=== PATIENT | female | born 1990 | race Caucasian/White ===

== ENCOUNTER 2016-12-28 06:23 | Observation (INO) ==
[2016-12-28 06:53] LABS: Bilirubin,Urine Negative (Negative); Blood,Urine Negative (Negative); Clarity,Urine Cloudy (Clear); Color,Urine Yellow (Yellow); Glucose,Urine (UA) Normal (Normal); Ketones,Urine Negative (Negative); Leukocyte Esterase,Urine Moderate (Negative); Nitrite,Urine Negative (Negative); PH,Urine 6.5 pH Units (5.0-8.0); Protein,Urine Negative (Neg-Trace); Urobilinogen,Urine Normal (Normal)
[2016-12-28 06:56] LABS: Hyaline Casts,Urine None Seen per lpf (None-Few); RBC,Urine 0-3 per hpf (0-3); Squamous Epithelial Cell,Urine Many per lpf (None-Few)
[2016-12-28 07:09] LABS: Bacteria,Urine Few per hpf (None-Few); Yeast,Urine Few per hpf (None Seen)
[2016-12-28] MEDS ORDERED: D5% in Lactated Ringers 1,000 ML IVC ONE (07:20)
[2016-12-28] MEDS ORDERED: Ringers Solution, Lactated 1,000 ML ONE (07:27)
[2016-12-28] MEDS ORDERED: Ringers Solution, Lactated 500 ML IVC ONE (07:30)
[2016-12-28 07:48] LABS: Basophils % 0.1 %; Eosinophils % 0.1 %; Hemoglobin 10.1 g/dL (11.5-15.4); Immature Granulocytes % 0.4 % (0-4); Immature Platelets 5.7 % (1.1-6.1); Lymphocytes # 0.8 K/mcL (0.6-4.6); Lymphocytes % 6.4 %; Mean Corpuscular HGB Conc 33.7 g/dL (31.6-35.5); Mean Corpuscular Hemoglobin 28.9 pg (28.0-33.3); Mean Corpuscular Volume 85.7 fL (83.0-100.0); Monocytes # 0.8 K/mcL (0.0-1.3); Monocytes % 6.2 %; Neutrophils # 11.4 K/mcL (1.6-8.9); Platelet Count 193 K/mcL (140-400); Red Cell Distribution Width 12.8 % (11.5-14.5); Segmented Neutrophils % 86.8 %
--- NOTE | 2016-12-28 09:22 | OB/GYN Progress Note ---
Date of Encounter: 12/28/16 Time of Encounter: 09:20 - Assessment and Plan (1) 33 weeks gestation of Current Visit: Yes Status: Acute (2) and not yet delivered in third trimester Current Visit: No Status: Acute (3) uterine contractions in third trimester, antepartum Current Visit: Yes Status: Acute Patient received IV hydration contractions that spaced out. Patient will be discharged home will follow-up in the office this week. Subjective - Subjective Interval history: Patient is a 26-year-old 5 para 4 at 33-0/7 weeks who presents to labor and delivery complaining of contractions starting approximately 2 AM. Patient states she started getting uncomfortable has been on labor and delivery once before when 28 weeks for similar complaints. She was given terbutaline at that time to stop her contractions. Patient was having occasional contractions on admission she was closed thick and ballotable and was given an IV bolus. Contractions did space out at this time. Patient denies any dysuria urgency frequency no vaginal discharge no recent intercourse. Patient has delivered all of her other children at term. Patient was observed for couple of hours contractions spaced out feeling much better ready to go home. Antepartum ROS: contractions Objective - Vital Signs Vital Signs: Intake and Output 12/27/16 12/28/16 12/28/16 23:59 07:59 15:59 Other: Weight 79.2 kg Patient Weight 12/28/16 23:59 Weight 79.2 kg - Exam FHR: category 1 FHR comments: heart tones 140s reactive occasional contractions on admission none at this time patient's heart tones were in the 160s 170s on admission also back normal Auscultation: bilateral: normal Abdomen: Present: normal appearance, gravid Uterus: Present: firm Cervical dilation: closed Cervix effacement: thick station: ballotable - Labs Labs: Abnormal lab results WBC 13.2 K/mcL (4.3-11.1) H 12/28/16 07:40 RBC 3.50 M/mcL (3.82-4.97) L 12/28/16 07:40 Hgb 10.1 g/dL (11.5-15.4) L 12/28/16 07:40 Hct 30.0 % (35.3-44.9) L 12/28/16 07:40 Neutrophils # 11.4 K/mcL (1.6-8.9) H 12/28/16 07:40 Urine Clarity Cloudy (Clear) A 12/28/16 06:30 Ur Leukocyte Esterase Moderate (Negative) H 12/28/16 06:30 Urine Microscopic WBC 5-15 per hpf (0-3) H 12/28/16 06:30 Ur Squamous Epith Cells Many per lpf (None-Few) H 12/28/16 06:30 Urine Yeast Few per hpf (None Seen) H 12/28/16 06:30 Ur Culture Indicated? YES (NO) A 12/28/16 06:30
== END 2016-12-28 09:40 | disposition home or self-care (01) ==
LOC: 1NENULAB
PROVIDERS: ADMIT Obstetrics & Gynecology; ATTEND Obstetrics & Gynecology

== ENCOUNTER 2017-01-20 13:30 | Observation (INO) ==
[2017-01-20 14:16] LABS: Bilirubin,Urine Small (Negative); Blood,Urine Negative (Negative); Clarity,Urine Cloudy (Clear); Color,Urine Dark Yellow (Yellow); Glucose,Urine (UA) Normal (Normal); Ketones,Urine Trace mg/dL (Negative); Leukocyte Esterase,Urine Large (Negative); Nitrite,Urine Negative (Negative); Protein,Urine 30 mg/dL (Neg-Trace); Specific Gravity,Urine > 1.030 (1.010-1.025); Urobilinogen,Urine Normal (Normal)
[2017-01-20 14:17] LABS: Bacteria,Urine Many per hpf (None-Few); Hyaline Casts,Urine Moderate per lpf (None-Few); Squamous Epithelial Cell,Urine Many per lpf (None-Few); WBC,Urine TNTC per hpf (0-3)
[2017-01-20 15:23] LABS: Basophils % 0.2 %; Eosinophils % 0.3 %; Hematocrit 33.1 % (35.3-44.9); Hemoglobin 10.5 g/dL (11.5-15.4); Immature Granulocytes % 0.3 % (0-4); Lymphocytes # 1.5 K/mcL (0.6-4.6); Lymphocytes % 12.8 %; Mean Corpuscular HGB Conc 31.7 g/dL (31.6-35.5); Mean Corpuscular Hemoglobin 27.1 pg (28.0-33.3); Mean Corpuscular Volume 85.5 fL (83.0-100.0); Mean Platelet Volume 10.7 fL (9.4-12.4); Monocytes # 0.5 K/mcL (0.0-1.3); Monocytes % 4.2 %; Neutrophils # 9.8 K/mcL (1.6-8.9); Platelet Count 231 K/mcL (140-400); Red Blood Count 3.87 M/mcL (3.82-4.97); Red Cell Distribution Width 13.2 % (11.5-14.5); Segmented Neutrophils % 82.2 %
--- NOTE | 2017-01-20 15:25 | OB/GYN Progress Note ---
Date of Encounter: 01/20/17 Time of Encounter: 15:21 - Assessment and Plan (1) 36 weeks gestation of Current Visit: Yes Status: Acute (2) Headache in , antepartum Current Visit: Yes Status: Acute Pt states headache has resolved. Continue with current home medication for migraine Qualifiers: Trimester: third trimester Qualified Code(s): O26.893 - Other specified related conditions, third trimester; R51 - Headache (3) Elevated blood pressure affecting in third trimester, antepartum Current Visit: Yes Status: Acute PIH labs drawn. Will discharge if WNL (4) UTI (urinary tract infection) in in third trimester Current Visit: Yes Status: Acute Macrobid 100mg po Bid for 7 days Subjective - Subjective Interval history: Pt 26 year old 36 week states had headache this AM that did not go away with migraine medication. Pt then took BP at home and was elvelated 150/110. Pt went to work to have BP taken manually by nurses and was 150's/106. Pt reports she did have some spots in vision this morning, but has improved, Pt states feels fine now no headache or visual changes currently. Endorses + movement , denies leaking of fluid or vaginal bleeding. Antepartum ROS: movement normal, no loss of fluid, no vaginal bleeding, no contractions Objective - Vital Signs Vital Signs: Intake and Output 01/19/17 01/20/17 01/20/17 23:59 07:59 15:59 Other: Weight 76.8 kg Patient Weight 01/20/17 23:59 Weight 76.8 kg - Exam FHR: category 1 FHR comments: Reactive NST baseline 145 Auscultation: bilateral: normal Abdomen: Present: normal appearance, soft, gravid Uterus: Present: normal - Labs Labs: Abnormal lab results Urine Clarity Cloudy (Clear) A 01/20/17 14:00 Ur Specific [place] > 1.030 (1.010-1.025) H 01/20/17 14:00 Urine Protein 30 mg/dL (Neg-Trace) H 01/20/17 14:00 Urine Ketones Trace mg/dL (Negative) H 01/20/17 14:00 Urine Bilirubin Small (Negative) H 01/20/17 14:00 Ur Leukocyte Esterase Large (Negative) H 01/20/17 14:00 Urine Microscopic RBC 3-5 per hpf (0-3) H 01/20/17 14:00 Urine Microscopic WBC TNTC per hpf (0-3) H 01/20/17 14:00 Ur Squamous Epith Cells Many per lpf (None-Few) H 01/20/17 14:00 Urine Bacteria Many per hpf (None-Few) H 01/20/17 14:00 Hyaline Casts Moderate per lpf (None-Few) H 01/20/17 14:00 Ur Culture Indicated? YES (NO) A 01/20/17 14:00
[2017-01-20 15:37] LABS: Alanine Aminotransferase 21 Units/L (0-55); Aspartate Amino Transferase 20 Units/L (5-34); BUN/Creatinine Ratio 12 (6-26); Blood Urea Nitrogen 8 mg/dL (7-20); Lactate Dehydrogenase 236 Units/L (159-327); Uric Acid 5.5 mg/dL (2.6-6.0); eGFR For African Americans > 60 (> 60); eGFR For Non-African Americans > 60 (> 60)
[2017-01-20 15:41] LABS: Protein/Creatinine Ratio,Urine 0.21 mg/mg (0-0.20)
== END 2017-01-20 15:54 | disposition home or self-care (01) ==
LOC: 1NENULAB
PROVIDERS: ADMIT Obstetrics & Gynecology; ATTEND Obstetrics & Gynecology

== ENCOUNTER 2017-01-21 13:02 | Inpatient (IN) ==
[2017-01-21] MEDS ORDERED: Ringers Solution, Lactated 1,000 ML IVC ONE (13:17)
[2017-01-21 13:44] LABS: Basophils % 0.1 %; Eosinophils # 0.1 K/mcL (0.0-0.6); Eosinophils % 0.6 %; Hematocrit 32.6 % (35.3-44.9); Hemoglobin 10.4 g/dL (11.5-15.4); Immature Granulocytes % 0.4 % (0-4); Lymphocytes # 1.9 K/mcL (0.6-4.6); Lymphocytes % 17.5 %; Mean Corpuscular HGB Conc 31.9 g/dL (31.6-35.5); Mean Corpuscular Hemoglobin 26.9 pg (28.0-33.3); Mean Corpuscular Volume 84.5 fL (83.0-100.0); Mean Platelet Volume 10.9 fL (9.4-12.4); Monocytes # 0.5 K/mcL (0.0-1.3); Neutrophils # 8.3 K/mcL (1.6-8.9); Platelet Count 216 K/mcL (140-400); Red Blood Count 3.86 M/mcL (3.82-4.97); Red Cell Distribution Width 13.3 % (11.5-14.5); Segmented Neutrophils % 76.4 %
[2017-01-21] MEDS ORDERED: Gentamicin 0 MG in 0.9 % Sodium Chloride 100 ML IVPB SCH (14:00)
[2017-01-21] MEDS ORDERED: Gentamicin 310 MG in 0.9 % Sodium Chloride 100 ML IVPB SCH (15:00)
[2017-01-21] MEDS ORDERED: Gentamicin 110 MG in 0.9 % Sodium Chloride 100 ML IVPB ONE (15:00)
[2017-01-21] MEDS ORDERED: Ringers Solution, Lactated 2,000 ML ONE (15:04)
--- NOTE | 2017-01-21 15:27 | OB/GYN Progress Note ---
Date of Encounter: 01/21/17 Time of Encounter: 15:24 - Assessment and Plan (1) 36 weeks gestation of Current Visit: No Status: Acute (2) and not yet delivered in third trimester Current Visit: No Status: Acute (3) UTI (urinary tract infection) in in third trimester Current Visit: No Status: Acute IV Gentamycin ordered by Dr. Yadav. (4) Flank pain, acute Current Visit: Yes Status: Acute Renal US ordered Subjective - Subjective Interval history: Pt seen yesterday and diagnosed with UTI. She was discharged with Macrobid. Today she was seen in the office for her routine visit and was found to have tea colored urine and c/o dysuria and right flank pain. She states she has taken 2 doses of the Macrobid with no improvement in sx. She states she has constant flank pain with intermittent exacerbations. She rates the pain 6/10. She does admit a history of kidney stones and states her pain today is similar to what she has had in the past with the stones. She also reports occassional contractions. No other complaints. Antepartum ROS: movement normal, contractions (occassional), no loss of fluid, no vaginal bleeding Objective - Vital Signs Vital Signs: Intake and Output 01/20/17 01/21/17 01/21/17 23:59 07:59 15:59 Other: Weight 75.523 kg Patient Weight 01/21/17 23:59 Weight 75.523 kg - Exam FHR: category 1 FHR comments: NST reactive Auscultation: bilateral: normal Abdomen: Present: soft, gravid. Absent: tenderness Uterus: Present: normal. Absent: tenderness - Labs Labs: Abnormal lab results Hgb 10.4 g/dL (11.5-15.4) L 01/21/17 13:20 Hct 32.6 % (35.3-44.9) L 01/21/17 13:20 MCH 26.9 pg (28.0-33.3) L 01/21/17 13:20
[2017-01-21] MEDS ORDERED: *HR* HYDROmorphone (PF) 1 MG/ML SYRINGE IVP PRN (15:49)
[2017-01-21] MEDS ORDERED: *HR* Nalbuphine 20 MG/ML AMPUL IVP PRN (15:54)
[2017-01-21 18:18] LABS: Bilirubin,Urine Small (Negative); Blood,Urine Negative (Negative); Clarity,Urine Cloudy (Clear); Color,Urine Red (Yellow); Glucose,Urine (UA) Normal (Normal); Ketones,Urine Trace mg/dL (Negative); Leukocyte Esterase,Urine Large (Negative); Nitrite,Urine Positive (Negative); Protein,Urine 30 mg/dL (Neg-Trace); Specific Gravity,Urine 1.022 (1.010-1.025); Urobilinogen,Urine Normal (Normal)
[2017-01-21 18:19] LABS: Bacteria,Urine Few per hpf (None-Few); Squamous Epithelial Cell,Urine Many per lpf (None-Few); WBC,Urine TNTC per hpf (0-3)
--- NOTE | 2017-01-21 18:22 | OB/GYN History & Physical ---
Date of Encounter: 01/21/17 Time of Encounter: 06:00 Assessment and Plan (1) labor in third trimester Current visit: Yes Status: Acute -Patient having contractions and cervix changes, now 5cm dilated. -GBS status unknown. Anaphylaxis to penicillins. Will give vanc. -Blood type B positive. No rhogam needed. -After 36w, no need for steroids. Plan -Continue to monitor. Rector, BP, HR -Continue cervix checks Qualifiers: labor delivery status: without delivery Qualified Code(s): O60.03 - labor without delivery, third trimester (2) Flank pain, acute Current visit: Yes Status: Acute -PMH of kidney stones. States it feels similar -Guarding. Resting comfortably in bed -History of fioricet and phenergan for years. -Cancelled US for [place] evalutaiton. Do not want patient to go into labor off the floor. Would not oil changer if patient has kidney stone-she will not go to surgery at this time and patient still making urine. Plan -Continue nubaine -Get UA with culture. -Continue Gent -Ultrasound cancelled -Continue fluids. (3) 36 weeks gestation of Current visit: No Status: Acute -Subchorionic hemorrhage. Managed conservatively -No other complications. History of Present Illness Chief complaint: Dysuria, R Flank Pain, Labor HPI: Ms. Patino is a 26 year old female, 36w3d, , originally placed in observation for UTI. See previous note for details. While being monitored, contractions are observed. Patient dilated from 2cm to 5cm in less than 3 hours. Preparation for labor initiated. Admits to R flank and superpubic pain, dysuria. Denies abdominal pain, CP, SOB. Patient admits to using ferocet and phenergen for years, has used with previous without complication. Denies smoking or drinking alcohol. Anaphylaxis to cephalexin and penicillin. History of subchorionic hemorrhage. Past Med Surg Social Fam HX - Past Medical History Medical history: asthma, kidney stones, migraine Psychiatric history: anxiety - Past Surgical History Surgical History: cholecystectomy, other - Social History Smoking Status: Never smoker Smokeless Tobacco Status: No Alcohol use: none Drug use: none - Family History Mother Family Member Ethnicity: Non- Living Status: Still Living Hx Family Cardiac Disorders: No Hx Family Respiratory Disorders: No Hx Family Cancer: No Hx Family GI Disorders: No Hx Family Genitourinary Disorders: No Hx Family Endocrine Disorder: No Hx Family Musculoskeletal Disorders: No Hx Family Neuromuscular Disorders: No Hx Family Neurologic Disorders: Yes (teja and nhung) Hx Family HEENT Disorders: No Hx Family Autoimmune Disorders: No Hx Family Reproductive Disorders: No Hx Family Psychosocial Disorders: No Hx Family Medical Disorders: No Obstetrical History - Pregnancies : 5 Para: 4 Term: 4 : 0 Ab's: 0 Livin - History/Complications History/Complications: subchorionic hemorrhage in current . No intervention. Managed conservatively without medication. Medications and Allergies Fioricet 100 mg PO Q6-8H PRN 06/18/15 [History] Phenergan 25 mg PO Q4-6H PRN 06/18/15 [History] Vitamin Tablet 12/28/16 [History] Nitrofurantoin Monohyd/M-Cryst [Macrobid 100 mg Capsule] 100 mg PO BID #14 capsule 01/20/17 [Rx] Allergies cephalexin [From Keflex] Allergy (Verified 10/01/16 12:30) Rash Penicillins [PCN] Allergy (Verified 10/01/16 12:30) Rash Exam - Constitutional Constitutional: well developed, well nourished, no acute distress, average body habitus - HEENT HEENT: Normocephaly, Mucus Membranes Moist - Lungs Respiratory exam: CTAB - Cardiovascular Cardiovascular exam: RRR, +S1, +S2 - Abdomen Abdomen: Present: gravid, non tender - Extremities Extremities exam: normal inspection - Cervix Dilation: 5 (per nurse) Effacement: 50 (per nurse ) - Uterus Uterus exam: Present: normal size, normal contour - Comments Comments: Patient resting comfortably in bed, supine and later on her L side. Complains of R flank pain. Pain with palpation. Is guarding. Results Result Diagrams: 01/21/17 13:20 01/21/17 18:39 Abnormal lab results Hgb 10.4 g/dL (11.5-15.4) L 01/21/17 13:20 Hct 32.6 % (35.3-44.9) L 01/21/17 13:20 MCH 26.9 pg (28.0-33.3) L 01/21/17 13:20 All other labs normal.
[2017-01-21 18:43] LABS: Hyaline Casts,Urine None Seen per lpf (None-Few); Mucus,Urine Many (Few)
[2017-01-21 18:58] LABS: BUN/Creatinine Ratio 6 (6-26); Carbon Dioxide 20 mEq/L (19-29); Chloride 109 mEq/L (98-109); Glucose 81 mg/dL (70-99); Osmolality,Calculated 284 (280-300); Potassium 3.5 mEq/L (3.5-4.5); Sodium 139 mEq/L (136-145); eGFR For African Americans > 60 (> 60); eGFR For Non-African Americans > 60 (> 60)
[2017-01-21 18:59] LABS: Blood Urea Nitrogen 4 mg/dL (7-20)
[2017-01-21] MEDS: Vancomycin 1,000 MG in D5% in Water 250 ML IVPB SCH (19:22)
--- NOTE | 2017-01-21 21:03 | OB Labor Progress Note ---
Date of Encounter: 01/21/17 Time of Encounter: 21:02 Labor Progress Note - Subjective Subjective: patient feeling more of her contractions - Vital Signs Vital Signs: VSS - Cervix Cervix: 5cm - Olean Olean: Q1-2 - Plan Plan: ok for epidural, Vanc for GBS ppx 2/2 PCN allergy, Gent for UTI Anticipate
[2017-01-21] MEDS ORDERED: Ringers Solution, Lactated 500 ML IVC ONE (21:24)
[2017-01-21] MEDS ORDERED: *HR* FentaNYL (PF) 100 MCG/2 ML VIAL EP ONE (21:24)
[2017-01-21] MEDS ORDERED: *HR* Ropivacaine/PF 0.2% 10 ML AMPUL EP ONE (21:24)
[2017-01-21] MEDS ORDERED: EPHEDrine 50 MG/ML VIAL IVP PRN (21:24)
--- NOTE | 2017-01-21 21:27 | Anesthesia Evaluation PreOp ---
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: Denies Any Significant HX Other Medical History: Denies Any Significant HX, Other (History of sacral fracture.) Anesthesia History: Past Anesthesia, Problems (Profound decrease in BP with epidurals in the past.) : Yes Alcohol Use: none Drug use: none Medications and Allergies Fioricet 100 mg PO Q6-8H PRN 06/18/15 [History] Phenergan 25 mg PO Q4-6H PRN 06/18/15 [History] Vitamin Tablet 12/28/16 [History] Nitrofurantoin Monohyd/M-Cryst [Macrobid 100 mg Capsule] 100 mg PO BID #14 capsule 01/20/17 [Rx] Allergies cephalexin [From Keflex] Allergy (Verified 10/01/16 12:30) Rash Penicillins [PCN] Allergy (Verified 10/01/16 12:30) Rash - Meds/Allergy Pre-op Review Medications Reviewed: Yes Allergies Reviewed: Yes Beta Blockers on Current Med List: No Anesthesia Results - Labs 01/21/17 13:20 01/21/17 18:39 Anesthesia Exam 130/72, 81, 20, 98% Height: 1.6m Weight: 75.5kg NPO (# of Hours): >4hr Pain Scale: 7 Pain Scale Used: Numeric (1 - 10) - HEENT Pupil (Motor): Pupils equal Mallampati: II Teeth: Normal Oral Opening: Greater than 3 - SOLAR SALES ASSESSOR LOC: Oriented [employer]AR SALES ASSESSOR Motor: Normal RUE, Normal LUE, Normal RLE, Normal LLE, Normal Face [employer] SALES ASSESSOR Sensory: Normal: RUE, LUE, RLE, LLE, Face - Cardiac Rhythm: Regular Murmur: None - Pulmonary Breath Sounds: bilateral Clear Respiratory Effort: Symmetrical Anesthesia Assess/Plan ASA Score: 2 Modified [place] Scale for Level of Consciousness: Cooperative, oriented, and tranquil Anesthetic Plan: Regional Autologous Blood: Yes Monitoring Plan: Standard Monitors Recovery Plan: Other
[2017-01-21] MEDS ORDERED: Epidural Premix (fent/bupiv) 110 ML EP ONE (21:29)
[2017-01-21] MEDS ORDERED: *HR* FentaNYL (PF) 100 MCG/2 ML VIAL ONE (21:29)
[2017-01-21] MEDS ORDERED: *HR* Ropivacaine/PF 0.2% 10 ML AMPUL ONE (21:29)
[2017-01-21] MEDS ORDERED: Epidural Premix (fent/bupiv) 110 ML EP SCH (21:30)
--- NOTE | 2017-01-21 22:06 | Anesthesia Procedures ---
Date of Encounter: 01/21/17 Time of Encounter: 21:36 Procedures: Anesthesia - Epidural/Spinal Patient ID/Chart reviewed: Yes Patient examined: Yes OB Eval: Gestational age: 36.3 OB Eval: : 5 OB Eval: Hx Para: 4 OB Eval: Dilated at (cm): 6 OB Eval: Contractions: Non-stressed pattern Consent Obtained: Yes Supplemental Oxygen: None/Room Air Site Prep: Aseptic Technique, Sterile prep and drape, 0.5% Chlorhexidine/Alcohol Patient position: upright Local Anesthetic: Lidocaine 1% Amount of Local Anesthetic used: 2.5 Touhy Needle Gauge: 18 Touhy Needle Depth (cm): 7 Catheter Depth at Skin (cm): 12 Test Dose (1.5% Lido + Epi): Volume given (mls): 3 Test Dose Result: Negative Loading Dose: Fentanyl (mcg): 100 Loading Dose: Other: Ropivacaine 0.2% 8mL Loading Dose Administered: Thru Catheter Infusion Med: 0.125% Bupivacaine w/ 2 mcg/ml Fentanyl Infusion Rate (mls/hr): 10 (Bolus 3mL q15min; max 3/hr) Catheter Secured in Place: Tegaderm, Tape Interspace Used: L3-L4 Loss of Resistance (SELENE): Yes Blood: No CSF: No Paresthesia: No Procedure: x2 attempts. Patient tolerated well. Slow bolus due to history of decreased BP with prior epidurals. Vitals + FHT's: VSS and FHR stable throughout procedure. See nursing documentation.
[2017-01-21] MEDS: Gentamicin 80 MG in 0.9 % Sodium Chloride 100 ML IVPB SCH (23:22)
[2017-01-22] MEDS ORDERED: *HR* FentaNYL (PF) 100 MCG/2 ML VIAL ONE ×2 (03:07→11:35)
[2017-01-22] MEDS ORDERED: *HR* Ropivacaine/PF 0.2% 10 ML AMPUL ONE (03:07)
--- NOTE | 2017-01-22 03:20 | Anesthesia Progress Note ---
Date of Encounter: 01/22/17 Time of Encounter: 03:00 Anesthesia Note - Note Note: 01/22/17 03:19 Epidural bolus - Ropiv 0.2% 6mL + Fentanyl 100mcg. Epidural rate increased to 12mL/hour.
--- NOTE | 2017-01-22 04:06 | OB Labor Progress Note ---
Date of Encounter: 01/22/17 Time of Encounter: 04:05 Labor Progress Note - Subjective Subjective: patient comfortable - Vital Signs Vital Signs: vss - Heart Tones Heart Tones: FHT CAT 1 - [place]: irreg - Plan Plan: patient still unchanged, cont antibiotics
[2017-01-22] MEDS ORDERED: Ringers Solution, Lactated 1,000 ML ONE ×2 (06:59→11:44)
[2017-01-22] MEDS ORDERED: Epidural Premix (fent/bupiv) 110 ML EP ONE (07:02)
[2017-01-22] MEDS: Vancomycin 1,000 MG in D5% in Water 250 ML IVPB SCH (07:04)
[2017-01-22] MEDS: Gentamicin 80 MG in 0.9 % Sodium Chloride 100 ML IVPB SCH ×2 (07:04→14:49)
[2017-01-22] MEDS ORDERED: Aminoglycoside Consult 1 EACH MC ONE (08:29)
--- NOTE | 2017-01-22 11:29 | OB Labor Progress Note ---
Date of Encounter: 01/22/17 Time of Encounter: 11:27 Labor Progress Note - Subjective Subjective: Pt reporting increasing discomfort with contractions. - Cervix Cervix: 6-7/80/BBOW - Heart Tones Heart Tones: Category I - [place]: irregular - Plan Plan: Will have anesthesia redose epidural since it had previously turned off. Anticipate .
--- NOTE | 2017-01-22 11:34 | Anesthesia Progress Note ---
Date of Encounter: 01/22/17 Time of Encounter: 11:30 Anesthesia Note - Note Note: 01/22/17 11:30 Called for increased pain during contractions. Spontaneous rupture. Dilated 6- 7cm. Epidural pump restarted at 12ml/hr. 3ml bolus given with epidural pharm bag premix solution through pump. Vss. FHR stable. 131/96 hr 131
[2017-01-22] MEDS ORDERED: Lidocaine/EPI 1:200k 2% PF 20 ML VIAL ONE (11:35)
--- NOTE | 2017-01-22 11:41 | Anesthesia Progress Note ---
Date of Encounter: 01/22/17 Time of Encounter: 11:40 Anesthesia Note - Note Note: 01/22/17 11:40 An additional bolus given for pain during contractions. 4ml of 2%lidocaine with epi and 100mcg fentanyl. vss. fhr stable
[2017-01-22] MEDS ORDERED: Oxytocin 20 units/ LR 1000 mL 20 UNIT/1,000 ML BAG IVC ONE ×2 (11:44→19:37)
[2017-01-22] MEDS ORDERED: Oxytocin 20 units/ LR 1000 mL 20 UNIT/1,000 ML BAG IVC SCH (13:30)
--- NOTE | 2017-01-22 17:06 | OB/GYN Procedure Note ---
Delivery - Delivery Date: 01/22/17 Provider: Susannah Carmen Intrapartum events: none, other(please specify) (PPROM) Delivery induction: none Delivery augmentation: pitocin Delivery monitor: external FHT, external uterine Anesthesia: epidural Estimated Blood Loss: 100 - Infant (s) Infant A Delivery Date: 01/22/17 Infant Delivery Time: 16:33 Presentation: vertex Position: ALANA Route of delivery: Gender: Female Viability: Viable Weight Gram: 3.455 kg at 1 minute: 8 at 5 mins: 9 Shoulder Dystocia: not encountered Placenta: spontaneous Cord: 3 umbilical vessels - Repair Episiotomy: none Laceration Description: Periurethral, Perineal - 1st Degree - Complications Delivery complications: none Delivery comments: The patient was complete and pushing with epidural anesthesia was a spontaneous vaginal delivery after 2 pushes of a vigorous female infant in the ALANA position with Apgars of 8 at 1 minute and 9 at 5 minutes. Infant was placed on maternal abdomen. Cord was clamped cut after pulsations ceased. Placenta was delivered spontaneously and intact. Three-vessel cord confirmed. There was a superficial right labial laceration which was hemostatic and not repaired. First-degree perineal laceration was repaired with 4-0 Vicryl in usual fashion. Estimated blood loss 100 mL, complications none. - Disposition Mom disposition: stable in LDR disposition: stable in LDR
[2017-01-22] MEDS ORDERED: Vancomycin 1,000 MG in D5% in Water 250 ML IVPB SCH (19:00)
[2017-01-22] MEDS ORDERED: Ibuprofen 600 MG TABLET PO PRN (19:37)
[2017-01-22] MEDS ORDERED: Measles/Mumps/Rubella Vacc 0.5 ML VIAL SQ PRN (19:37)
[2017-01-22] MEDS ORDERED: Oxytocin 20 units/ LR 1000 mL 20 UNIT/1,000 ML BAG IV SCH (19:37)
[2017-01-22] MEDS ORDERED: Acetaminophen 325 MG TABLET PO PRN (19:37)
[2017-01-22] MEDS: *HR* OxyCODONE/APAP 5/325 TABLET PO PRN (20:15)
[2017-01-23] MEDS: Gentamicin 80 MG in 0.9 % Sodium Chloride 100 ML IVPB SCH ×4 (00:15→23:08)
[2017-01-23] MEDS ORDERED: Ringers Solution, Lactated 1,000 ML ONE (06:18)
[2017-01-23] MEDS: *HR* OxyCODONE/APAP 5/325 TABLET PO PRN ×4 (06:22→20:23)
[2017-01-23 06:56] LABS: Basophils % 0.2 %; Eosinophils # 0.1 K/mcL (0.0-0.6); Eosinophils % 1.4 %; Hematocrit 28.1 % (35.3-44.9); Immature Granulocytes % 0.5 % (0-4); Lymphocytes # 2.5 K/mcL (0.6-4.6); Lymphocytes % 28.8 %; Mean Corpuscular HGB Conc 31.3 g/dL (31.6-35.5); Mean Corpuscular Hemoglobin 26.7 pg (28.0-33.3); Mean Corpuscular Volume 85.4 fL (83.0-100.0); Mean Platelet Volume 11.2 fL (9.4-12.4); Monocytes # 0.7 K/mcL (0.0-1.3); Monocytes % 8.1 %; Neutrophils # 5.3 K/mcL (1.6-8.9); Platelet Count 149 K/mcL (140-400); Red Blood Count 3.29 M/mcL (3.82-4.97); Red Cell Distribution Width 13.4 % (11.5-14.5)
[2017-01-23 06:58] LABS: Hemoglobin 8.8 g/dL (11.5-15.4)
[2017-01-23] MEDS: Prenatal Vit/FA 1 EACH TABLET PO SCH (09:46)
--- NOTE | 2017-01-23 10:57 | OB/GYN Progress Note ---
Date of Encounter: 01/23/17 Time of Encounter: 10:53 - Assessment and Plan (1) Flank pain, acute Current Visit: Yes Status: Acute renal US today. Remains on IV ATB (2) Vaginal delivery Current Visit: No Status: Acute Pt. meeting all milestones, but is not feeding well. consulted. Will plan discharge tomorrow AM. Subjective - Subjective Interval history: Pt states feeling better, minimal pain at this time. Patient reports: appetite normal : doing well Objective - Latest Vital Signs Latest vital signs: Vital Signs Temp Pulse Resp BP Pulse Ox 01/23/17 09:25 97.8 F 75 16 123/78 98 01/22/17 23:00 16 01/22/17 22:50 98.4 F 65 16 106/67 97 01/22/17 20:50 97.9 F 81 16 114/74 98 01/22/17 19:50 98.1 F 81 16 119/70 100 Intake and Output 01/22/17 01/23/17 01/23/17 23:59 07:59 15:59 Intake Total 102 / 102 300 / 300 Output Total 400 / 400 Balance 102 / 102 -100 / -100 Intake: IV Fluids 102 / 102 Gentamicin 80 MG In 0.9 % 102 / 102 Sodium Chloride 100 ML @ 100 mls/hr IVPB Q8H [facility] Rx#:[id number] Oral 300 / 300 Output: Urine 400 / 400 Other: Meal Breakfast Percent of Meal Consumed 70% Weight 73.9 kg 75.4 kg Patient Weight 01/23/17 23:59 Weight 75.4 kg - Exam Lungs: bilateral: normal Chest: Normal S1, Normal S2 Extremities: Present: normal Abdomen: Present: normal appearance Uterus: Present: normal, firm - Labs Labs: Laboratory Results - last 24 hr 01/23/17 06:16 WBC 8.7 RBC 3.29 L Hgb 8.8 L D Hct 28.1 L MCV 85.4 MCH 26.7 L MCHC 31.3 L RDW 13.4 Plt Count 149 MPV 11.2 Immature Gran % 0.5 Seg Neutrophils % 61.0 Lymphocytes % 28.8 Monocytes % 8.1 Eosinophils % 1.4 Basophils % 0.2 Neutrophils # 5.3 Lymphocytes # 2.5 Monocytes # 0.7 Eosinophils # 0.1 Basophils # 0.0
--- NOTE | 2017-01-23 20:55 | OB/GYN Progress Note ---
Date of Encounter: 01/23/17 Time of Encounter: 20:51 - Assessment and Plan (1) Flank pain, acute Current Visit: Yes Status: Acute renal US today now shows mild hydronephrosis, will obtain followup CT as pt still has symptoms. Remains on IV ATB. (2) Vaginal delivery Current Visit: No Status: Acute Pt. meeting all milestones, but is not feeding well. consulted. Will plan discharge tomorrow AM. Subjective - Subjective Interval history: Pt in room upset as just told her she wanted a divorce. Pt states is continuing to have flank pain, but is improved when taking pain medication. Objective - Latest Vital Signs Latest vital signs: Vital Signs Temp Pulse Resp BP Pulse Ox 01/23/17 20:05 98.2 F 68 14 126/80 99 01/23/17 15:30 98 F 70 16 110/75 100 01/23/17 09:25 97.8 F 75 16 123/78 98 01/22/17 23:00 16 01/22/17 22:50 98.4 F 65 16 106/67 97 Intake and Output 01/23/17 01/23/17 01/23/17 07:59 15:59 23:59 Intake Total 204 / 204 1320 / 1320 222 / 222 Output Total 1250 / 1250 Balance 204 / 204 70 / 70 222 / 222 Intake: IV Fluids 204 / 204 102 / 102 Gentamicin 80 MG In 0.9 % 204 / 204 102 / 102 Sodium Chloride 100 ML @ 100 mls/hr IVPB Q8H [facility] Rx#:[id number] Oral 1320 / 1320 120 / 120 Output: Urine 1250 / 1250 Other: Meal Lunch Dinner Percent of Meal Consumed 100% 90% # Voids 1 Weight 75.4 kg Patient Weight 01/23/17 23:59 Weight 75.4 kg - Exam Comments: Pt with right flank pain and CVA tenderness. no pain or CVA tenderness on the left side. - Labs Labs: Laboratory Results - last 24 hr 01/23/17 06:16 WBC 8.7 RBC 3.29 L Hgb 8.8 L D Hct 28.1 L MCV 85.4 MCH 26.7 L MCHC 31.3 L RDW 13.4 Plt Count 149 MPV 11.2 Immature Gran % 0.5 Seg Neutrophils % 61.0 Lymphocytes % 28.8 Monocytes % 8.1 Eosinophils % 1.4 Basophils % 0.2 Neutrophils # 5.3 Lymphocytes # 2.5 Monocytes # 0.7 Eosinophils # 0.1 Basophils # 0.0 Renal US shows mild right hydronephrosis with no remal caluli seen
[2017-01-24] MEDS: *HR* OxyCODONE/APAP 5/325 TABLET PO PRN ×3 (00:40→09:37)
[2017-01-24] MEDS: Gentamicin 80 MG in 0.9 % Sodium Chloride 100 ML IVPB SCH (07:32)
--- NOTE | 2017-01-24 08:31 | Discharge Summary ---
Date of Encounter: 01/24/17 Time of Encounter: 08:29 - Discharge Diagnosis (1) Breast feeding status of mother Priority: Secondary Status: Acute Comments: support prn (2) Vaginal delivery Priority: Primary Status: Acute Comments: Continue routine care discharge home today follow up with Dr. Yadav - Discharge Medications Prescriptions: Ibuprofen [Motrin] 600 mg PO Q6HR PRN #60 tablet PRN Reason: Cramping Breast Pump [BREAST PUMP] 1 each .ROUTE AD #1 each Ferrous Sulfate 325 mg PO BID #60 tablet Home Medications: Vitamin Tablet 12/28/16 [History] Breast Pump [BREAST PUMP] 1 each .ROUTE AD #1 each 01/24/17 [Rx] Ferrous Sulfate 325 mg PO BID #60 tablet 01/24/17 [Rx] Ibuprofen [Motrin] 600 mg PO Q6HR PRN #60 tablet 01/24/17 [Rx] Vit/FA 1 each PO DAILY tablet 01/24/17 [Rx] Allergies/Adverse Reactions: Allergies cephalexin [From Keflex] Allergy (Verified 10/01/16 12:30) Rash Penicillins [PCN] Allergy (Verified 10/01/16 12:30) Rash Data Procedures and tests throughout hospitalization: Laboratory Tests 01/21/17 01/21/17 01/21/17 13:20 18:08 18:39 WBC 10.8 RBC 3.86 Hgb 10.4 L Hct 32.6 L MCV 84.5 MCH 26.9 L MCHC 31.9 RDW 13.3 Plt Count 216 MPV 10.9 Immature Gran % 0.4 Seg Neutrophils % 76.4 Lymphocytes % 17.5 Monocytes % 5.0 Eosinophils % 0.6 Basophils % 0.1 Neutrophils # 8.3 Lymphocytes # 1.9 Monocytes # 0.5 Eosinophils # 0.1 Basophils # 0.0 Sodium 139 Potassium 3.5 Chloride 109 Carbon Dioxide 20 BUN 4 L Creatinine 0.64 Est GFR ( Amer) > 60 Est GFR (Non-Af Amer) > 60 BUN/Creatinine Ratio 6 Glucose 81 Calculated Osmolality 284 Calcium 8.0 L Urine Color Red A Urine Clarity Cloudy A Urine pH 6.0 Ur Specific [place] 1.022 Urine Protein 30 H Urine Glucose (UA) Normal Urine Ketones Trace H Urine Blood Negative Urine Nitrite Positive A Urine Bilirubin Small H Urine Urobilinogen Normal Ur Leukocyte Esterase Large H Urine Microscopic RBC Test Not Performed Urine Microscopic WBC TNTC H Ur Squamous Epith Cells Many H Urine Bacteria Few Hyaline Casts None Seen Urine Mucus Many H Ur Culture Indicated? YES A 01/23/17 06:16 WBC 8.7 RBC 3.29 L Hgb 8.8 L D Hct 28.1 L MCV 85.4 MCH 26.7 L MCHC 31.3 L RDW 13.4 Plt Count 149 MPV 11.2 Immature Gran % 0.5 Seg Neutrophils % 61.0 Lymphocytes % 28.8 Monocytes % 8.1 Eosinophils % 1.4 Basophils % 0.2 Neutrophils # 5.3 Lymphocytes # 2.5 Monocytes # 0.7 Eosinophils # 0.1 Basophils # 0.0 Sodium Potassium Chloride Carbon Dioxide BUN Creatinine Est GFR ( Amer) Est GFR (Non-Af Amer) BUN/Creatinine Ratio Glucose Calculated Osmolality Calcium Urine Color Urine Clarity Urine pH Ur Specific [place] Urine Protein Urine Glucose (UA) Urine Ketones Urine Blood Urine Nitrite Urine Bilirubin Urine Urobilinogen Ur Leukocyte Esterase Urine Microscopic RBC Urine Microscopic WBC Ur Squamous Epith Cells Urine Bacteria Hyaline Casts Urine Mucus Ur Culture Indicated? - Impressions ITS Impressions Retroperitoneum Ultrasound 01/23/17 16:00 IMPRESSION: Mild right hydronephrosis. Suggest CT to evaluate for obstructing stone. D/ / Pramod Harden MD / Pramod Harden MD Interpreting Provider: Pramod Harden MD Abdomen/Pelvis CT 01/23/17 20:47 IMPRESSION: 1. Mild right hydroureteronephrosis without obstructive renal stone. This may be secondary to external compression of the distal right ureter by the enlarged and heterogeneous uterus. Much less likely, right-sided pyelonephritis may be considered within the differential diagnosis. 2. Enlarged and heterogeneous uterus likely related to status. Scattered hyperdense material in the endometrial cavity may reflect blood products. D/ 01/24/2017 07:15:35 Julius Randolph MD / josh Interpreting Provider: Julius Randolph MD Date of admission: 01/22/17 15:39 Primary care physician: Tracy Ji CNP Consults: 01/22/17 19:37 Consult to Wrecking Supervisor [CONS] Routine Comment: Vaginal delivery, consult needed 01/24/17 08:27 Consult to [place] (W&C) [CONS] Stat Reason For Exam: Reason for SW Consult: Patient upset, FOB asked for a divorce yesterday after baby was born. Discharging clinician: Maris Avina Anticipated date of discharge: 01/24/17 - Patient Status Disposition: Home, Self-Care Condition: Good Functional capacity at discharge: independent ambulation - Discharge Instructions Follow Up With: Tracy Ji CNP [Primary Care Provider] - Mukesh Yadav MD [Partnered Physician] - (February 25, 2017 @ 2:00 pm) - Diet and Activity Activity: increase activity as tolerated Diet: regular diet Hospital Course Reason for admission: active labor Delivery: Episiotomy: none Other procedures: none complications: UTI Discharge diagnosis: delivery baby: female (breast feeding) Time Attestation: Total time spent providing and/or coordinating discharge services: Time Spent: Less than 30 minutes Exam - Constitutional Vitals: Temp Pulse Resp BP Pulse Ox 98.2 F 68 14 126/80 99 01/23/17 20:05 01/23/17 20:05 01/23/17 20:05 01/23/17 20:05 01/23/17 20:05 General appearance IM: A&O X 3, pleasant, answers questions appropriately - Respiratory Respiratory exam: Present: CTAB - Cardiovascular Cardiovascular exam IM: Present: RRR, +S1, +S2 - GI/Abdominal GI/Abdominal exam IM: normal bowel sounds - Uterine Tone: Firm Uterus Position: 2 Fingers Below Umbilicus, Midline - Extremities Exam Extremities exam IM: Present: full ROM, normal capillary refill, normal inspection - Neurological Exam Neurological exam: alert, oriented X3, reflexes normal - Other Additional findings: light lochia
[2017-01-24 09:12] VITALS: BP 138/88
[2017-01-24] MEDS: Prenatal Vit/FA 1 EACH TABLET PO SCH (09:42)
== END 2017-01-24 14:16 | disposition home or self-care (01) | DRG 774 ==
LOC: 1NENULAB → 1NENUOBS 01-22 21:13
PROVIDERS: ADMIT Student in an Organized Health Care Education/Training Program; ATTEND Student in an Organized Health Care Education/Training Program

== ENCOUNTER 2018-11-11 00:01 | Observation (INO) ==
[2018-11-11 00:46] LABS: Bilirubin,Urine Negative (Negative); Blood,Urine Negative (Negative); Clarity,Urine Clear (Clear); Color,Urine Yellow (Yellow); Glucose,Urine (UA) Normal (Normal); Ketones,Urine Negative (Negative); Leukocyte Esterase,Urine Negative (Negative); Nitrite,Urine Negative (Negative); Protein,Urine 30 mg/dL (Neg-Trace); Specific Gravity,Urine > 1.030 (1.010-1.025); Urobilinogen,Urine Normal (Normal)
[2018-11-11 00:48] LABS: Bacteria,Urine None Seen per hpf (None-Few); Hyaline Casts,Urine None Seen per lpf (None-Few); RBC,Urine 0-3 per hpf (0-3); Squamous Epithelial Cell,Urine Many per lpf (None-Few); WBC,Urine 0-3 per hpf (0-3)
--- NOTE | 2018-11-11 01:12 | Emergency Department Note ---
Disposition Clinical Impression: Pelvic pain, First trimester , Free fluid in pelvis Disposition: Admitted As Inpatient Condition: Serious Abdominal Pain HPI - General Chief Complaint: ED Abdominal Pain Stated Complaint: Possible Ectopic Time Seen by Provider: 11/11/18 00:52 Source: patient Mode of arrival: ambulatory Limitations: no limitations Nursing Notes Reviewed: Yes Vital Signs Reviewed: Yes - History of Present Illness HPI Narrative: Patient is a at approximately 5 weeks presenting with right lower quadrant and pelvic pain. She reports her last menstrual period was in September. She had a positive test a few days ago. States yesterday she started having cramping and vaginal bleeding in the right lower quadrant. States that the vaginal bleeding has since stopped, but the cramping has progressively gotten worse. She was at work today and the pain continued to get worse. No fever or chills. No chest pain or shortness breath. No other abdominal pain. Some nausea but no vomiting. No diarrhea. No dysuria. No rashes. No decreased appetite, but she has had a very dry mouth. Pain Scale: 7 - Related Data Home Medications Medication Instructions Recorded Confirmed RX: No Known Home Drugs 11/11/18 11/11/18 Allergies Allergy/AdvReac Type Severity Reaction Status Date / Time cephalexin [From Keflex] Allergy Anaphylaxis Verified 11/11/18 00:23 Penicillins [PCN] Allergy See Verified 11/11/18 00:23 Comments Review of Systems: As reviewed in the HPI. All other systems reviewed are negative or normal. Abdominal Pain PMH - Past Medical History Medical history: Reports: asthma Female Surgical History: Reports: cholecystectomy : 6 Para: 5 A: 0 Psychiatric history: Reports: anxiety - Social History Smoking status: Never smoker Alcohol use: Reports: none Drug use: Reports: none Physical Exam CONSTITUTIONAL: [well appearing, alert and in no acute distress, but does appear quite uncomfortable] EYES: [EOMI, clear conjunctiva, PERRLA] HENT: [Normocephalic, atraumatic, moist mucus membranes, normal oropharynx] NECK: [normal inspection, full ROM, trachea midline, no obvious swelling] PULMONARY: [normal lung sounds bilaterally, normal chest rise and fall, no respiratory distress or stridor, no wheezes, no rales, no rhonchi CARDIOVASCULAR: [regular rate, regular rhythm, normal heart sounds, no murmurs, distal extremities are warm and well perfused] GASTROINSTESTINAL: [soft, moderately tender with guarding to the right lower quadrant and pelvis, non-rigid, non-distended, normal bowel sounds] GENITOURINARY/RECTAL: [deferred] NEUROLOGIC: [Alert, oriented x3, normal speech, moves all extremities] EXTREMITIES: [Normal inspection, full ROM, no tenderness, no pedal edema, normal capillary refill] MUSCULOSKELETAL: [no gross deformities, atraumatic] SKIN: [No cyanosis, no diaphoresis, normal color, warm, no rash] PSYCHIATRIC: [normal mood and affect] - General Limitations: no limitations General appearance: alert, in no apparent distress Course Course Narrative: Patient presenting with concern over ectopic . We will get quant and ultrasound. - Reevaluation(s) Reevaluation #1: 3:50 - Ultrasound is back and showed a moderate amount of free fluid with no identifiable IUP. I spoke with the on-call SURVEY WORKER [place] seamer. We will await callback from Dr. Yadav. 03:55 - Dr. Yadav will be up to see the patient in a few minutes. patient to be admitted for observation. Vital Signs Temperature 98.2 F 11/11/18 00:20 Pulse Rate 89 11/11/18 00:20 Respiratory Rate 20 11/11/18 00:20 Blood Pressure 116/69 11/11/18 00:20 O2 Sat by Pulse Oximetry 99 11/11/18 00:20 Temperature 98.2 F 11/11/18 00:20 Pulse Rate 82 11/11/18 03:17 Respiratory Rate 20 11/11/18 05:27 Blood Pressure 108/57 11/11/18 05:27 O2 Sat by Pulse Oximetry 99 11/11/18 03:17 Oxygen Delivery Oxygen Delivery Room Air Abdominal Pain - Lab Data Result diagrams: 11/11/18 01:26 11/11/18 01:26 Lab Results 11/11/18 11/11/18 11/11/18 Range/Units 00:30 01:26 01:26 WBC 11.6 H (4.3-11.1) K/mcL RBC 4.24 (3.82-4.97) M/mcL Hgb 13.2 (11.5-15.4) g/dL Hct 39.0 (35.3-44.9) % MCV 92.0 (83.0-100.0) fL MCH 31.1 (28.0-33.3) pg MCHC 33.8 (31.6-35.5) g/dL RDW 12.3 (11.5-14.5) % Plt Count 324 (140-400) K/mcL MPV 10.5 (9.4-12.4) fL Immature Gran % 0.3 (0-4) % Seg Neutrophils % 63.7 % Lymphocytes % 27.2 % Monocytes % 7.7 % Eosinophils % 0.8 % Basophils % 0.3 % Neutrophils # 7.4 (1.6-8.9) K/mcL Lymphocytes # 3.2 (0.6-4.6) K/mcL Monocytes # 0.9 (0.0-1.3) K/mcL Eosinophils # 0.1 (0.0-0.6) K/mcL Basophils # 0.0 (0.0-0.2) K/mcL Sodium 139 (136-145) mEq/L Potassium 3.7 (3.5-5.1) mEq/L Chloride 105 (98-107) mEq/L Carbon Dioxide 24 (23-29) mEq/L BUN 15 (6-20) mg/dL Creatinine 0.81 (0.60-1.20) mg/dL Est GFR ( Amer) > 60 (> 60) Est GFR (Non-Af Amer) > 60 (> 60) BUN/Creatinine Ratio 19 (6-26) Glucose 108 H (70-105) mg/dL Calculated Osmolality 289 (280-300) Calcium 9.9 (8.6-10.3) mg/dL Beta HCG, Quant 1240 H (Less than 5) mIU/mL Urine Color Yellow (Yellow) Urine Clarity Clear (Clear) Urine pH 6.0 (5.0-8.0) pH Units Ur Specific [place] > 1.030 H (1.010-1.025) Urine Protein 30 H (Neg-Trace) mg/dL Urine Glucose (UA) Normal (Normal) mg/dL Urine Ketones Negative (Negative) mg/dL Urine Blood Negative (Negative) Urine Nitrite Negative (Negative) Urine Bilirubin Negative (Negative) Urine Urobilinogen Normal (Normal) mg/dL Ur Leukocyte Esterase Negative (Negative) Urine Microscopic RBC 0-3 (0-3) per hpf Urine Microscopic WBC 0-3 (0-3) per hpf Ur Squamous Epith Cells Many H (None-Few) per lpf Urine Bacteria None Seen (None-Few) per hpf Hyaline Casts None Seen (None-Few) per lpf Ur Culture Indicated? NO (NO)
--- NOTE | 2018-11-11 01:29 | Emergency Department Note ---
Disposition Clinical Impression: Pelvic pain, First trimester , Free fluid in pelvis Disposition: Admitted As Inpatient Condition: Serious Referrals: Tracy Ji CNP [Primary Care Provider] - Forms: ED Satisfaction Letter, Work/School Release General Adult HPI - General Chief complaint: ED Abdominal Pain Stated complaint: Possible Ectopic Time Seen by Provider: 11/11/18 00:52 Source: patient Mode of arrival: ambulatory Limitations: no limitations - History of Present Illness Pain Scale: 7 - Related Data Home Medications Medication Instructions Recorded Confirmed Fioricet 10/01/18 Previous Rx's Medication Instructions Recorded levoFLOXacin [Levaquin] 500 mg PO DAILY #12 tablet 10/01/18 levoFLOXacin [Levaquin] 500 mg PO DAILY #12 tablet 10/01/18 predniSONE [PredniSONE] 0 mg PO DAILY #15 tablet 10/01/18 Allergies Allergy/AdvReac Type Severity Reaction Status Date / Time cephalexin [From Keflex] Allergy Anaphylaxis Verified 11/11/18 00:23 Penicillins [PCN] Allergy See Verified 11/11/18 00:23 Comments Past Medical History - Past Medical History Medical history: Reports: asthma Surgical history: Reports: cholecystectomy, other Psychiatric history: Reports: anxiety : 6 Para: 5 Ab: 0 - Social History Smoking Status: Never smoker Smokeless Tobacco Status: No Alcohol use: Reports: none Drug use: Reports: none Physical Exam - General Limitations: no limitations General appearance: alert, in no apparent distress Course Vital Signs Temperature 98.2 F 11/11/18 00:20 Pulse Rate 89 11/11/18 00:20 Respiratory Rate 20 11/11/18 00:20 Blood Pressure 116/69 11/11/18 00:20 O2 Sat by Pulse Oximetry 99 11/11/18 00:20 Temperature 98.2 F 11/11/18 00:20 Pulse Rate 82 11/11/18 03:17 Respiratory Rate 16 11/11/18 03:17 Blood Pressure 116/70 11/11/18 03:17 O2 Sat by Pulse Oximetry 99 11/11/18 03:17 Oxygen Delivery Oxygen Delivery Room Air Medical Decision Making - Lab Data Result diagrams: 11/11/18 01:26 11/11/18 01:26 Lab Results 11/11/18 11/11/18 11/11/18 Range/Units 00:30 01:26 01:26 WBC 11.6 H (4.3-11.1) K/mcL RBC 4.24 (3.82-4.97) M/mcL Hgb 13.2 (11.5-15.4) g/dL Hct 39.0 (35.3-44.9) % MCV 92.0 (83.0-100.0) fL MCH 31.1 (28.0-33.3) pg MCHC 33.8 (31.6-35.5) g/dL RDW 12.3 (11.5-14.5) % Plt Count 324 (140-400) K/mcL MPV 10.5 (9.4-12.4) fL Immature Gran % 0.3 (0-4) % Seg Neutrophils % 63.7 % Lymphocytes % 27.2 % Monocytes % 7.7 % Eosinophils % 0.8 % Basophils % 0.3 % Neutrophils # 7.4 (1.6-8.9) K/mcL Lymphocytes # 3.2 (0.6-4.6) K/mcL Monocytes # 0.9 (0.0-1.3) K/mcL Eosinophils # 0.1 (0.0-0.6) K/mcL Basophils # 0.0 (0.0-0.2) K/mcL Sodium 139 (136-145) mEq/L Potassium 3.7 (3.5-5.1) mEq/L Chloride 105 (98-107) mEq/L Carbon Dioxide 24 (23-29) mEq/L BUN 15 (6-20) mg/dL Creatinine 0.81 (0.60-1.20) mg/dL Est GFR ( Amer) > 60 (> 60) Est GFR (Non-Af Amer) > 60 (> 60) BUN/Creatinine Ratio 19 (6-26) Glucose 108 H (70-105) mg/dL Calculated Osmolality 289 (280-300) Calcium 9.9 (8.6-10.3) mg/dL Beta HCG, Quant 1240 H (Less than 5) mIU/mL Urine Color Yellow (Yellow) Urine Clarity Clear (Clear) Urine pH 6.0 (5.0-8.0) pH Units Ur Specific [place] > 1.030 H (1.010-1.025) Urine Protein 30 H (Neg-Trace) mg/dL Urine Glucose (UA) Normal (Normal) mg/dL Urine Ketones Negative (Negative) mg/dL Urine Blood Negative (Negative) Urine Nitrite Negative (Negative) Urine Bilirubin Negative (Negative) Urine Urobilinogen Normal (Normal) mg/dL Ur Leukocyte Esterase Negative (Negative) Urine Microscopic RBC 0-3 (0-3) per hpf Urine Microscopic WBC 0-3 (0-3) per hpf Ur Squamous Epith Cells Many H (None-Few) per lpf Urine Bacteria None Seen (None-Few) per hpf Hyaline Casts None Seen (None-Few) per lpf Ur Culture Indicated? NO (NO) Attestation Statement - Attestation Attestation: I examined this patient and my medical decision-making was reviewed with the Resident Physician. I agree with the documented findings, disposition and treatment plan as described except to the extent set forth below. 5 weeks by dates type B positive. Presents with spotting, right pelvic pain. All pain is inferior to the umbilicus. Procedure, emergency point care ultrasound for : Procedure performed by me, images obtained and interpreted by me and archived in PACS. Multiple images of the uterus were obtained in the longitudinal and transverse planes by transvaginal ultrasonography showing a moderate amount of free fluid in the pelvis with a thick endometrial stripe and a small cystic structure at the extreme edge of the endometrial stripe. There is no yolk sac or pole within the small structure that is only a few millimeters in diameter. The possibility of a corneal ectopic is considered, but I cannot confirm a based on the scan. Both adnexa were well visualized. I saw nothing in either ovary or adjacent either ovary to suggest an ectopic . Given the concerning clinical history, but appears to be a significant amount of free fluid in the pelvis, and a questionable finding that would be concerning for a corneal ectopic. I will have our painting technician do a formal study. Radiology ultrasound showed essentially the same results his mind. Dr. Nieto was consulted. He is about to deliver on the L&D unit. He called his spoke to by phone. We discussed possible options. While in back to discuss these with the patient, her heart rate that was in the 80s was now ranging between 101 115. Blood pressure remains normal. Her pain is similar, now moving to her right flank. She has a normal hemoglobin and blood pressure, borderline hCG. This could be an early , but given her symptoms and the fluid in her pelvis Dr. Nieto and I are concerned for the possibility of an ectopic. She is willing to stay for observation, serial exams and serial HCG/US, Dr. Nieto will admit her. Critical care time: I was directly and primarily involve the care of this patient for 30 minutes excluding procedures.
[2018-11-11] MEDS: 0.9 % Sodium Chloride 1,000 ML IVC SCH ×2 (01:33→03:17)
[2018-11-11 01:42] LABS: Basophils % 0.3 %; Eosinophils # 0.1 K/mcL (0.0-0.6); Eosinophils % 0.8 %; Hemoglobin 13.2 g/dL (11.5-15.4); Immature Granulocytes % 0.3 % (0-4); Lymphocytes # 3.2 K/mcL (0.6-4.6); Lymphocytes % 27.2 %; Mean Corpuscular HGB Conc 33.8 g/dL (31.6-35.5); Mean Corpuscular Hemoglobin 31.1 pg (28.0-33.3); Mean Platelet Volume 10.5 fL (9.4-12.4); Monocytes # 0.9 K/mcL (0.0-1.3); Monocytes % 7.7 %; Neutrophils # 7.4 K/mcL (1.6-8.9); Platelet Count 324 K/mcL (140-400); Red Blood Count 4.24 M/mcL (3.82-4.97); Red Cell Distribution Width 12.3 % (11.5-14.5); Segmented Neutrophils % 63.7 %
[2018-11-11 02:00] LABS: BUN/Creatinine Ratio 19 (6-26); Blood Urea Nitrogen 15 mg/dL (6-20); Calcium 9.9 mg/dL (8.6-10.3); Carbon Dioxide 24 mEq/L (23-29); Chloride 105 mEq/L (98-107); Glucose 108 mg/dL (70-105); Osmolality,Calculated 289 (280-300); Potassium 3.7 mEq/L (3.5-5.1); Sodium 139 mEq/L (136-145); eGFR For Non-African Americans > 60 (> 60)
[2018-11-11] MEDS ORDERED: *HR* FentaNYL (PF) 100 MCG/2 ML VIAL IVP ONE (05:54)
[2018-11-11] MEDS ORDERED: Ringers Solution, Lactated 1,000 ML ONE (05:58)
[2018-11-11] MEDS ORDERED: Ringers Solution, Lactated 1,000 ML IVC SCH ×2 (06:00→12:09)
--- NOTE | 2018-11-11 06:27 | OB/GYN History & Physical ---
Date of Encounter: 11/11/18 Time of Encounter: 06:25 Assessment and Plan (1) First trimester Current visit: Yes Status: Acute Pt with known LMP making her about 6w5d gesttion. Quant is 1250 which is c/w this clinical date. U/s shows free fluid and a small complex cyst in rt ovary c/w possible hemorrhagic CL. Also found is a small sac within a thickened endometrium. Pt has significant tenderness in RLQ , however no genralzied peritoneal signs. She is ambulating. B/c of pain, spotting, complex cystic mass will admit for observtion. Hgb and VS are good though her pulse has trended upwards. Will recheck labs and follow exam. Will leave pt NPO in case exploratory l/s were indicated. Dw pt particular concern with doing surgery ea rly on with possible viable . (2) Free fluid in pelvis Current visit: Yes Status: Acute (3) Pelvic pain Current visit: Yes Status: Acute History of Present Illness Chief complaint: spotting in , rlq pain HPI: Ms. Patino is a 28 year old female female with LMP in [facility] who is a little over 6 weeks EGA per LMP presents with 3 -4 day h/o vginal spotting nd now aobut 7-8 hour h/o sudden on set of RLQ pain. 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 Pt reports some nausea, no emesis, no h/o similar c/o. She has no h/o STD's. Past Med Surg Social Fam HX - Past Medical History Source: patient, old records reviewed Medical history: asthma Additional medical history: sepsis Psychiatric history: anxiety - Past Surgical History Surgical History: cholecystectomy, other Additional surgical history: hernia repair - Social History Smoking Status: Never smoker Smokeless Tobacco Status: No Alcohol use: none Drug use: none - Family History Mother Family Member Ethnicity: Non- Living Status: Still Living Hx Family Cardiac Disorders: No Hx Family Respiratory Disorders: No Hx Family Cancer: No Hx Family GI Disorders: No Hx Family Endocrine Disorder: No Hx Family Neuromuscular Disorders: No Hx Family Neurologic Disorders: Yes (warneke and korsicoff) Hx Family HEENT Disorders: No Hx Family Autoimmune Disorders: No Obstetrical History - Pregnancies : 6 Para: 5 Medications and Allergies No Known Home Drugs 11/11/18 [History] Allergy/AdvReac Type Severity Reaction Status Date / Time cephalexin [From Keflex] Allergy Anaphylaxis Verified 11/11/18 00:23 Penicillins [PCN] Allergy See Verified 11/11/18 00:23 Comments Exam - Vital Signs Vital signs: Initial Vital Signs Temp Pulse Resp BP Pulse Ox 98.2 F 89 20 116/69 99 11/11/18 00:20 11/11/18 00:20 11/11/18 00:20 11/11/18 00:20 11/11/18 00:20 - Constitutional Constitutional: well developed, mild distress - HEENT HEENT: EOMI, PERRL - Neck Neck exam: full ROM - Lungs Respiratory exam: CTAB - Cardiovascular Cardiovascular exam: RRR - Vulva Vulva: bilateral: normal - Uterus Uterus exam: Present: tender - Adnexa Adnexa: right: tenderness (mod rlq pain, no generalized pain) Results Result Diagrams: 11/11/18 01:26 11/11/18 01:26 Abnormal lab results WBC 11.6 K/mcL (4.3-11.1) H 11/11/18 01:26 Glucose 108 mg/dL (70-105) H 11/11/18 01:26 Beta HCG, Quant 1240 mIU/mL (Less than 5) H 11/11/18 01:26 Ur Specific [place] > 1.030 (1.010-1.025) H 11/11/18 00:30 Urine Protein 30 mg/dL (Neg-Trace) H 11/11/18 00:30 Ur Squamous Epith Cells Many per lpf (None-Few) H 11/11/18 00:30 All other labs normal.
[2018-11-11 07:45] LABS: Basophils % 0.3 %; Eosinophils # 0.1 K/mcL (0.0-0.6); Eosinophils % 0.9 %; Hematocrit 34.7 % (35.3-44.9); Immature Granulocytes % 0.3 % (0-4); Lymphocytes # 3.1 K/mcL (0.6-4.6); Mean Corpuscular HGB Conc 33.4 g/dL (31.6-35.5); Mean Corpuscular Hemoglobin 31.3 pg (28.0-33.3); Mean Corpuscular Volume 93.5 fL (83.0-100.0); Mean Platelet Volume 10.3 fL (9.4-12.4); Monocytes # 0.7 K/mcL (0.0-1.3); Monocytes % 7.1 %; Neutrophils # 6.1 K/mcL (1.6-8.9); Platelet Count 250 K/mcL (140-400); Red Blood Count 3.71 M/mcL (3.82-4.97); Red Cell Distribution Width 12.4 % (11.5-14.5); Segmented Neutrophils % 60.4 %
[2018-11-11 07:46] LABS: Hemoglobin 11.6 g/dL (11.5-15.4)
--- NOTE | 2018-11-11 08:08 | Anesthesia Evaluation PreOp ---
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: Denies Any Significant HX Other Medical History: Denies Any Significant HX Anesthesia History: No Prior Anesthetic Complications, Past Anesthesia (Cleft palate repair & revision, L-RCR, R-ACL, Jaja w/umbilia; & inguinal hernia repairs.), Problems (Profound decrease in BP with epidurals) Alcohol Use: none Drug use: none Medications and Allergies No Known Home Drugs 11/11/18 [History] Allergy/AdvReac Type Severity Reaction Status Date / Time cephalexin [From Keflex] Allergy Anaphylaxis Verified 11/11/18 00:23 Penicillins [PCN] Allergy See Verified 11/11/18 00:23 Comments - Meds/Allergy Pre-op Review Medications Reviewed: Yes Allergies Reviewed: Yes Beta Blockers on Current Med List: No Anesthesia Results - Labs 11/11/18 07:29 11/11/18 01:26 Laboratory Results Laboratory Tests 11/11/18 01:26 Beta HCG, Quant 1240 H Impressions Obstetrics Ultrasound 11/11/18 00:57 IMPRESSION: No intrauterine or extrauterine is identified. Findings are compatible with of unknown location given the positive HCG. Recommend follow-up with serial HCG measurements and repeat ultrasound in 7-10 days. D/ / Chris Rojas / Chris Rojas Interpreting Provider: Chris Rojas Anesthesia Exam Vital Signs Temp Pulse Resp BP Pulse Ox 11/11/18 06:00 97.7 F 114 14 139/88 100 11/11/18 05:27 20 108/57 11/11/18 03:17 82 16 116/70 99 11/11/18 01:36 82 16 112/62 100 11/11/18 00:20 98.2 F 89 20 116/69 99 Intake and Output 11/10/18 11/11/18 11/11/18 23:59 07:59 15:59 Intake Total 1000 / 1000 Balance 1000 / 1000 Intake: IV Fluids 1000 / 1000 0.9 % Sodium Chloride 1,000 ML 1000 / 1000 @ 3750 mls/hr IVC .Q16M MARTA Rx# :[id number] Other: Weight 67.132 kg Patient Weight 11/11/18 23:59 Weight 67.132 kg Height: 5'2: Weight: 148# BMI = 27 NPO (# of Hours): MNOc - HEENT Pupil (Motor): Pupils equal, EOMI Mallampati: III Teeth: Normal (fair dentition) Oral Opening: Greater than 3 - MOTOR GENERATOR SET OPERATOR LOC: Oriented MOTOR GENERATOR SET OPERATOR Motor: Normal RUE, Normal LUE, Normal RLE, Normal LLE, Normal Face MOTOR GENERATOR SET OPERATOR Sensory: Normal: RUE, LUE, RLE, LLE, Face - Cardiac Rhythm: Regular Murmur: None - Pulmonary Breath Sounds: bilateral Clear Respiratory Effort: Symmetrical Anesthesia Assess/Plan ASA Score: 2, E Level of consciousness: Cooperative, Oriented, Tranquil Anesthetic Plan: General Monitoring Plan: Standard Monitors Recovery Plan: PACU Anes Supervising Prov Stmt: PT seen/evaluated, R&B discussed, questions answered and consent obtained. Gracie Leonard MD
[2018-11-11] MEDS ORDERED: Acetaminophen IV 1,000 MG/100 ML INFUS..BTL IVPB ONE (08:12)
[2018-11-11] MEDS ORDERED: Scopolamine Patch 1.5 MG PATCH.TD72 TD ONE (08:12)
[2018-11-11] MEDS ORDERED: Famotidine 20 MG/2 ML VIAL IVP ONE (08:12)
[2018-11-11] MEDS ORDERED: *HR* HYDROmorphone 2 MG TABLET PO PRN (08:13)
[2018-11-11] MEDS ORDERED: *HR* HYDROmorphone (PF) 1 MG/ML SYRINGE IVP PRN (08:13)
[2018-11-11] MEDS ORDERED: Clindamycin 900 MG/50 ML 900 MG/50 ML IV.SOLN IVPB ONE ×2 (09:52→09:53)
[2018-11-11] MEDS ORDERED: *HR* FentaNYL (PF) 100 MCG/2 ML VIAL ONE (09:55)
[2018-11-11] MEDS ORDERED: *HR* Midazolam HCl 2 MG/2 ML VIAL ONE (09:55)
[2018-11-11] MEDS ORDERED: Lidocaine -MPF 2% 2 ML VIAL ONE (09:56)
[2018-11-11] MEDS ORDERED: Dexamethasone 4 MG/ML VIAL ONE (09:56)
[2018-11-11] MEDS ORDERED: *HR* Rocuronium Bromide 50 MG/5 ML VIAL ONE (09:56)
[2018-11-11] MEDS ORDERED: Lidocaine -MPF 4% 5 ML AMPUL ONE (09:56)
[2018-11-11] MEDS ORDERED: Ondansetron 4 MG/2 ML VIAL ONE (09:56)
[2018-11-11] MEDS ORDERED: Bupivacaine/EPI 1:200k 0.25%PF 10 ML VIAL INFILT ONE (10:05)
[2018-11-11] MEDS ORDERED: *HR* HYDROmorphone (PF) 1 MG/ML SYRINGE ONE (10:14)
[2018-11-11] MEDS ORDERED: Neostigmine Methylsulfate 3 MG/3 ML SYRINGE ONE (11:10)
[2018-11-11] MEDS ORDERED: Dexmedetomidine HCl 400 MCG/100 ML MLS IVC ONE (11:26)
[2018-11-11] MEDS: *HR* Promethazine 25 MG/ML VIAL IVP PRN ×2 (11:37→11:47)
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
--- NOTE | 2018-11-11 12:00 | Discharge Summary ---
Outpatient Proc Discharge Plan - Plan Prescriptions: Oxycodone HCl/Acetaminophen [Percocet 5-325 mg Tablet] 1 each PO Q6H PRN 7 Days #30 tablet PRN Reason: post op pain Home Medications: Oxycodone HCl/Acetaminophen [Percocet 5-325 mg Tablet] 1 each PO Q6H PRN 7 Days #30 tablet 11/11/18 [Rx]
--- NOTE | 2018-11-11 12:05 | Anesthesia Evaluation Post Op ---
Date of Encounter: 11/11/18 Time of Encounter: 12:04 - Vital Signs Vital Signs: vss - Lungs Lungs: Clear Ascult./Percussion - Airway Airway: Non-obstructed - Cardiovascular Baseline Rhythm - Mental Status Mental Status: Asleep with brisk response to light stimulation - Pain Pain Scale used: Sonny (Faces) - Nausea Vomiting Nausea Vomiting: Not Present - Discharge PostOp Status: Transfer Patient to floor
[2018-11-11] MEDS ORDERED: *HR* OxyCODONE/APAP 5/325 TABLET PO PRN (12:09)
[2018-11-11 15:31] VITALS: BP 91/56
== END 2018-11-11 21:02 | disposition home or self-care (01) ==
LOC: EMEROOARM 00:01 → 1NENUOBS 00:01
PROVIDERS: ADMIT Obstetrics & Gynecology; ATTEND Obstetrics & Gynecology

== ENCOUNTER 2018-11-24 18:46 | Observation (INO) ==
[2018-11-24] MEDS ORDERED: Ringers Solution, Lactated 1,000 ML IVC SCH (19:15)
[2018-11-24 19:54] LABS: Basophils % 0.2 %; Eosinophils # 0.1 K/mcL (0.0-0.6); Eosinophils % 1.6 %; Hematocrit 32.3 % (35.3-44.9); Hemoglobin 11.2 g/dL (11.5-15.4); Immature Granulocytes % 0.3 % (0-4); Lymphocytes # 2.2 K/mcL (0.6-4.6); Lymphocytes % 24.7 %; Mean Corpuscular HGB Conc 34.7 g/dL (31.6-35.5); Mean Corpuscular Volume 92.3 fL (83.0-100.0); Mean Platelet Volume 10.6 fL (9.4-12.4); Monocytes # 0.8 K/mcL (0.0-1.3); Monocytes % 8.4 %; Neutrophils # 5.8 K/mcL (1.6-8.9); Platelet Count 228 K/mcL (140-400); Red Cell Distribution Width 12.2 % (11.5-14.5); Segmented Neutrophils % 64.8 %
[2018-11-24 20:30] VITALS: BP 104/51
--- NOTE | 2018-11-24 21:16 | Discharge Summary ---
Date of Encounter: 11/24/18 Time of Encounter: 21:23 - Discharge Diagnosis (1) Incomplete Priority: Primary Status: Acute Comments: per NINO pt with pain and bleeding in first trimester of . Initally she was taken to OR for possible ectopic with normal pelvis findings except for several cc of straw colored fluid. She then felt better and init had significantly increasing quant and resolution of pain. Pt now with bleeding and quant init 9.5 k, her bleeding persists and she continues to c/o rlq pain. She now had u/s today showing ES <20 mm, no longer with flid collection in uterus and no free fluid. Quant has sig dropped to just over 1K and hgb stable. D/w pt probable nearly completed AB. She is AF and normal WBC and HGB. Will d/c home. Will tx with Zithromax and flagyl for possible myometritis. She is to f/u in 1 week for recheck and quant. - Discharge Medications Prescriptions: metroNIDAZOLE [Flagyl] 500 mg PO BID #20 tablet Home Medications: Ondansetron ODT [Zofran ODT] 4 mg SL Q6HR PRN #10 tab.rapdis 11/22/18 [Rx] metroNIDAZOLE [Flagyl] 500 mg PO BID #20 tablet 11/24/18 [Rx] Allergies/Adverse Reactions: Allergy/AdvReac Type Severity Reaction Status Date / Time cephalexin [From Keflex] Allergy Anaphylaxis Verified 11/22/18 00:47 Penicillins [PCN] Allergy See Verified 11/22/18 00:47 Comments Data Procedures and tests throughout hospitalization: Laboratory Tests 11/24/18 11/24/18 19:38 19:38 WBC 9.0 RBC 3.50 L Hgb 11.2 L Hct 32.3 L MCV 92.3 MCH 32.0 MCHC 34.7 RDW 12.2 Plt Count 228 MPV 10.6 Immature Gran % 0.3 Seg Neutrophils % 64.8 Lymphocytes % 24.7 Monocytes % 8.4 Eosinophils % 1.6 Basophils % 0.2 Neutrophils # 5.8 Lymphocytes # 2.2 Monocytes # 0.8 Eosinophils # 0.1 Basophils # 0.0 Beta HCG, Quant 1766 H Labs on day of discharge: Labs from last 24 hours 11/24/18 11/24/18 19:38 19:38 WBC 9.0 RBC 3.50 L Hgb 11.2 L Hct 32.3 L MCV 92.3 MCH 32.0 MCHC 34.7 RDW 12.2 Plt Count 228 MPV 10.6 Immature Gran % 0.3 Seg Neutrophils % 64.8 Lymphocytes % 24.7 Monocytes % 8.4 Eosinophils % 1.6 Basophils % 0.2 Neutrophils # 5.8 Lymphocytes # 2.2 Monocytes # 0.8 Eosinophils # 0.1 Basophils # 0.0 Beta HCG, Quant 1766 H - Impressions Pt s/p dx l/s for possible ectopic on 11/11. At that time she had normal appearing pelvis with clear fluid noted. She felt better until 4 days ago when she had onset of bleeding like a period. This bleeding has continued and she presented to office today in f/u from ER where she was seen on 11/22. In ER she had minimally elevated WBC 12.4 and hgb 12.4. She had quant 9.5k and u/s showing no significant free fluid or adnexal findings. A small irregular sac was noted in fundus but no pole or yolk sac noted. She was d/c'd home and now today she is seen with continued bleeding and pain in RLQ. She is sent to [facility] for evaluation. She has no n/v or orthostatic sx's. She has been taking Percocet for pain. 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 I noted minimal pain on pelvic exam while pv u/s being performed - Extremities Exam Extremities exam IM: Present: full ROM - Neurological Exam Neurological exam: oriented X3
[2018-11-24] MEDS ORDERED: Azithromycin 250 MG TABLET PO ONE (21:30)
[2018-11-24] MEDS ORDERED: metroNIDAZOLE 500 MG TABLET PO ONE (21:30)
== END 2018-11-24 22:10 | disposition home or self-care (01) ==
LOC: 1NENUOBS
PROVIDERS: ADMIT Obstetrics & Gynecology; ATTEND Obstetrics & Gynecology

== ENCOUNTER 2018-12-20 14:04 | Inpatient (IN) ==
[2018-12-20] MEDS ORDERED: *HR* LORazepam 0.5 MG TABLET PO ONE (14:21)
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
[2018-12-20 15:03] LABS: Basophils % 0.3 %; Eosinophils # 0.1 K/mcL (0.0-0.6); Eosinophils % 0.5 %; Hematocrit 42.4 % (35.3-44.9); Hemoglobin 14.1 g/dL (11.5-15.4); Immature Granulocytes % 0.2 % (0-4); Lymphocytes # 2.2 K/mcL (0.6-4.6); Lymphocytes % 23.3 %; Mean Corpuscular HGB Conc 33.3 g/dL (31.6-35.5); Mean Corpuscular Volume 93.2 fL (83.0-100.0); Mean Platelet Volume 10.6 fL (9.4-12.4); Monocytes # 0.6 K/mcL (0.0-1.3); Neutrophils # 6.6 K/mcL (1.6-8.9); Platelet Count 290 K/mcL (140-400); Red Blood Count 4.55 M/mcL (3.82-4.97); Red Cell Distribution Width 12.1 % (11.5-14.5); Segmented Neutrophils % 69.7 %
[2018-12-20 15:19] LABS: Bilirubin,Urine Small (Negative); Blood,Urine Negative (Negative); Clarity,Urine Clear (Clear); Color,Urine Dark Yellow (Yellow); Glucose,Urine (UA) Normal (Normal); Ketones,Urine Trace mg/dL (Negative); Leukocyte Esterase,Urine Trace (Negative); Nitrite,Urine Negative (Negative); PH,Urine 5.5 pH Units (5.0-8.0); Protein,Urine 100 mg/dL (Neg-Trace); Specific Gravity,Urine 1.029 (1.010-1.025); Urobilinogen,Urine Normal (Normal)
[2018-12-20 15:20] LABS: Bacteria,Urine None Seen per hpf (None-Few); Hyaline Casts,Urine None Seen per lpf (None-Few); Squamous Epithelial Cell,Urine Many per lpf (None-Few); WBC,Urine 0-3 per hpf (0-3)
[2018-12-20 15:24] LABS: Acetaminophen < 10 mcg/mL (10-20); BUN/Creatinine Ratio 24 (6-26); Blood Urea Nitrogen 15 mg/dL (6-20); Calcium 9.6 mg/dL (8.6-10.3); Carbon Dioxide 25 mEq/L (23-29); Chloride 106 mEq/L (98-107); Ethanol < 10 mg/dL (Less than 10); Glucose 103 mg/dL (70-105); Osmolality,Calculated 291 (280-300); Potassium 3.7 mEq/L (3.5-5.1); Salicylate < 2.5 mg/dL (15.0-30.0); Sodium 140 mEq/L (136-145); eGFR For Non-African Americans > 60 (> 60)
[2018-12-20 15:32] LABS: Amphetamine Screen,Urine Negative ng/mL (Cutoff=1000); Barbiturate Screen,Urine Positive ng/mL (Cutoff=200); Benzodiazepines Screen,Urine Negative ng/mL (Cutoff=200); Cannabinoid Screen,Urine Negative ng/mL (Cutoff = 50); Cocaine Screen,Urine Negative ng/mL (Cutoff= 300); Opiate Screen,Urine Negative ng/mL (Cutoff=300); Phencyclidine Screen,Urine Negative ng/mL (Cutoff=25)
[2018-12-20 15:37] LABS: Thyroid Stimulating Hormone 0.511 mcIU/mL (0.340-5.600)
[2018-12-20 18:53] LABS: Chlamydia Trachomatis DNA Ur NOT DETECTED (Not Detect)
[2018-12-20] MEDS ORDERED: *HR* LORazepam 1 MG TABLET PO PRN (20:15)
[2018-12-20] MEDS ORDERED: *HR* LORazepam 2 MG/ML VIAL IM PRN (20:15)
[2018-12-20] MEDS ORDERED: Haloperidol Lactate 5 MG/ML VIAL IM PRN (20:15)
[2018-12-20] MEDS ORDERED: Mag Hydrox/Al Hydrox/Simeth 30 ML UDC PO PRN (20:15)
[2018-12-20] MEDS ORDERED: MOM Conc 10 ML UD.LIQ PO PRN (20:15)
[2018-12-20] MEDS ORDERED: Ibuprofen 400 MG TABLET PO PRN (20:15)
[2018-12-20] MEDS ORDERED: hydrOXYzine pamoate 25 MG CAPSULE PO PRN (20:15)
[2018-12-20] MEDS ORDERED: traZODone 50 MG TABLET PO PRN (20:15)
[2018-12-21] MEDS: Acetaminophen/Butalbital/CaffeineTABLET PO PRN ×2 (05:48→21:45)
--- NOTE | 2018-12-21 11:30 | Psychiatry History & Physical ---
Date of Encounter: 12/21/18 Time of Encounter: 10:00 History of Present Illness Patient Stated Chief Complaint: "There is so much" Medicare Admission Attestation: For traditional Medicare patients the provided hospital inpatient services are reasonable and necessary and in the case of services not specified as inpatient-only under 42 CFR 419.22 (n), that they are appropriately provided as inpatient services in accordance 42 CFR 412.3. For Critical Access Hospital the patient may reasonably be expected to be discharged or transferred to a hospital within 96 hours after admission to the Critical Access Hospital. Admitted From: Emergency Dept Plans for Post Hospital Care: Home History of Present Illness: Ms. 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 She has made suicidal comments to different staff in the emergency room over the past few weeks. She has had 5 weeks of very difficult psychosocial situations including finding out about her 's affair having a ectopic and the of her horse. She reports that she has had suicidal ideation with a plan to overdose on her Zoloft and to cut her throat. There are guns in the home but she denies suicidal plan with specific to shooting herself. She has no plans of harming the children. She does think that her youngest child who is an and still breast-feeding would miss her. She has been having panic attacks with rapid breathing pacing and feelings of extreme anxiety she says she has been coping by working and feels she does not have much social support outside of her work friends. She does say that her [id number] is supportive of her. Today she is denying suicidal ideations. Past Med Surg Social Fam HX - Past Medical History Medical history: asthma - Past Psychiatric History Psychiatric history: Reports: anxiety, depression Past psychiatric history details: She says she has never been in the hospital for has never received outpatient counseling or psychiatry she has no history of suicide attempts or self-harm. She reports she has been tried on different medications by her primary care physician including Zoloft Celexa and Vistaril and BuSpar in the past. Family psychiatric history: Unknown Family History of Suicide: Unknown - Past Surgical History Surgical History: cholecystectomy, orthopedic, other, other - Social History Smoking Status: Never smoker Smokeless Tobacco Status: No Alcohol use: none Drug use: none Occupational status: employed Current living situation: Home - Independent Activity Level: Independent ambulation Recent Out of Country Travel Within the Last 8 Weeks: No Exposure or Possible Exposure to Illness During Travel: No Additional social history: She lives with her . She would like to work on the relationship but feels that he does not want to. 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 Eyes substances of abuse. She has prescribed Fioricet for migraines which she uses appropriately as prescribed. He has worked as a nurse for 7 years. - Family History Mother Family Member Ethnicity: Non- Living Status: Still Living Hx Family Cardiac Disorders: No Hx Family Respiratory Disorders: No Hx Family Cancer: No Hx Family GI Disorders: No Hx Family Endocrine Disorder: No Hx Family Neuromuscular Disorders: No Hx Family Neurologic Disorders: Yes (radha) Hx Family HEENT Disorders: No Hx Family Autoimmune Disorders: No Medications & Allergies Ondansetron ODT [Zofran ODT] 4 mg SL Q6HR PRN #10 tab.rapdis 11/22/18 [Rx] metroNIDAZOLE [Flagyl] 500 mg PO BID #20 tablet 11/24/18 [Rx] Acetaminophen/Butalbital/Caffe [Fioricet] 1 each PO DAILY PRN 12/21/18 [History] Allergy/AdvReac Type Severity Reaction Status Date / Time cephalexin [From Keflex] Allergy Anaphylaxis Verified 11/22/18 00:47 Penicillins [PCN] Allergy See Verified 11/22/18 00:47 Comments Review of Systems Psychiatric: Reports: depression, anxiety, suicidal ideation, hopelessness Exam - HEENT Head exam IM: Present: atraumatic - Constitutional Vitals: Temp Pulse Resp BP Pulse Ox 98.4 F 105 16 130/81 99 12/21/18 09:00 12/21/18 09:00 12/21/18 09:00 12/21/18 09:00 12/21/18 09:00 General appearance: age & developmentally appropriate - Musculoskeletal Gait: normal Station: relaxed Strength & Tone: normal for patient - Psychiatric Patient Orientation: Yes Person, Yes Time, Yes Place Level of alertness: Alert Behavior: calm Psychomotor activity: Normal Eye Contact: Maintains Eye Contact Mood Description: Depressed, Anxious Patient description of mood: "Overwhelmed" Affect description: anxious Speech Volume: Normal Speech pattern: normal rate Language & Vocabulary: consistent with education Thought Process: Intact Thought Content: Yes Suicidal ideation Perceptual Disturbances: No Auditory hallucinations, No Visual hallucinations Attention Span Ability: Capable of Focused Attention Memory Description: Grossly Intact Patient Reliability: Reliable Historian Fund of knowledge: Yes average Intelligence Estimate: Average Judgment: Fair Insight: Partial Results - Drug Levels and Toxicology Drug Levels and Toxicology: Drug Levels and Toxicity 12/20/18 12/20/18 14:39 15:00 Urine Opiates Screen Negative Acetaminophen < 10 L Ur Barbiturates Screen Positive H Ur Phencyclidine Scrn Negative Ur Amphetamines Screen Negative U Benzodiazepines Scrn Negative Urine Cocaine Screen Negative U Marijuana (THC) Screen Negative Ethyl Alcohol < 10 - Labs Labs: Laboratory Last Values WBC 9.4 K/mcL (4.3-11.1) 12/20/18 14:39 RBC 4.55 M/mcL (3.82-4.97) 12/20/18 14:39 Hgb 14.1 g/dL (11.5-15.4) 12/20/18 14:39 Hct 42.4 % (35.3-44.9) 12/20/18 14:39 MCV 93.2 fL (83.0-100.0) 12/20/18 14:39 MCH 31.0 pg (28.0-33.3) 12/20/18 14:39 MCHC 33.3 g/dL (31.6-35.5) 12/20/18 14:39 RDW 12.1 % (11.5-14.5) 12/20/18 14:39 Plt Count 290 K/mcL (140-400) 12/20/18 14:39 MPV 10.6 fL (9.4-12.4) 12/20/18 14:39 Immature Gran % 0.2 % (0-4) 12/20/18 14:39 Seg Neutrophils % 69.7 % 12/20/18 14:39 Lymphocytes % 23.3 % 12/20/18 14:39 Monocytes % 6.0 % 12/20/18 14:39 Eosinophils % 0.5 % 12/20/18 14:39 Basophils % 0.3 % 12/20/18 14:39 Neutrophils # 6.6 K/mcL (1.6-8.9) 12/20/18 14:39 Lymphocytes # 2.2 K/mcL (0.6-4.6) 12/20/18 14:39 Monocytes # 0.6 K/mcL (0.0-1.3) 12/20/18 14:39 Eosinophils # 0.1 K/mcL (0.0-0.6) 12/20/18 14:39 Basophils # 0.0 K/mcL (0.0-0.2) 12/20/18 14:39 Sodium 140 mEq/L (136-145) 12/20/18 14:39 Potassium 3.7 mEq/L (3.5-5.1) 12/20/18 14:39 Chloride 106 mEq/L (98-107) 12/20/18 14:39 Carbon Dioxide 25 mEq/L (23-29) 12/20/18 14:39 BUN 15 mg/dL (6-20) 12/20/18 14:39 Creatinine 0.63 mg/dL (0.60-1.20) 12/20/18 14:39 Est GFR ( Amer) > 60 (> 60) 12/20/18 14:39 Est GFR (Non-Af Amer) > 60 (> 60) 12/20/18 14:39 BUN/Creatinine Ratio 24 (6-26) 12/20/18 14:39 Glucose 103 mg/dL (70-105) 12/20/18 14:39 Calculated Osmolality 291 (280-300) 12/20/18 14:39 Calcium 9.6 mg/dL (8.6-10.3) 12/20/18 14:39 TSH 0.511 mcIU/mL (0.340-5.600) 12/20/18 14:39 Urine Color Dark Yellow (Yellow) 12/20/18 15:00 Urine Clarity Clear (Clear) 12/20/18 15:00 Urine pH 5.5 pH Units (5.0-8.0) 12/20/18 15:00 Ur Specific [place] 1.029 (1.010-1.025) H 12/20/18 15:00 Urine Protein 100 mg/dL (Neg-Trace) H 12/20/18 15:00 Urine Glucose (UA) Normal mg/dL (Normal) 12/20/18 15:00 Urine Ketones Trace mg/dL (Negative) H 12/20/18 15:00 Urine Blood Negative (Negative) 12/20/18 15:00 Urine Nitrite Negative (Negative) 12/20/18 15:00 Urine Bilirubin Small (Negative) H 12/20/18 15:00 Urine Urobilinogen Normal mg/dL (Normal) 12/20/18 15:00 Ur Leukocyte Esterase Trace (Negative) H 12/20/18 15:00 Urine Microscopic RBC 3-5 per hpf (0-3) H 12/20/18 15:00 Urine Microscopic WBC 0-3 per hpf (0-3) 12/20/18 15:00 Ur Squamous Epith Cells Many per lpf (None-Few) H 12/20/18 15:00 Urine Bacteria None Seen per hpf (None-Few) 12/20/18 15:00 Hyaline Casts None Seen per lpf (None-Few) 12/20/18 15:00 Urine Test Negative (Negative) 12/20/18 15:00 Salicylates < 2.5 mg/dL (15.0-30.0) L 12/20/18 14:39 Urine Opiates Screen Negative ng/mL (Lqemye=519) 12/20/18 15:00 Acetaminophen < 10 mcg/mL (10-20) L 12/20/18 14:39 Ur Barbiturates Screen Positive ng/mL (Qhqsex=383) H 12/20/18 15:00 Ur Phencyclidine Scrn Negative ng/mL (Cutoff=25) 12/20/18 15:00 Ur Amphetamines Screen Negative ng/mL (Hcxyme=8344) 12/20/18 15:00 U Benzodiazepines Scrn Negative ng/mL (Lzelgv=259) 12/20/18 15:00 Urine Cocaine Screen Negative ng/mL (Cutoff= 300) 12/20/18 15:00 U Marijuana (THC) Screen Negative ng/mL (Cutoff = 50) 12/20/18 15:00 Ur Drug Screen Interp See Below 12/20/18 15:00 Ethyl Alcohol < 10 mg/dL (Less than 10) 12/20/18 14:39 Ur C. trach DNA (PCR) NOT DETECTED (Not Detect) 12/20/18 15:00 U N.gonorrhoeae DNA PCR NOT DETECTED (Not Detect) 12/20/18 15:00 Assessment and Plan (1) Depression Current visit: Yes Status: Acute Plan: Admit inpatient for safety and stabilization, Close observation, Suicide Precautions per unit protocol, Encourage participation in unit milieu, Group Therapy, Monitor sleep, Monitor appetite Additional Plan: I will restart Zoloft 25 mg by mouth every morning for depression and anxiety and BuSpar 10 mg by mouth twice a day for anxiety we discussed risks benefits and side effects of these alternative treatment options and the fact that she is currently breast-feeding she gave informed consent. I will encourage group attendance. We will attempt to get collateral information. Risks, benefits, side effects, alternatives discussed w/pt: Yes Patient ag reeable to treatment: Yes Plans for Post Hospital Care: Home Estimated Length of Stay (Days): 3 Qualifiers: Depression Type: major depressive disorder Major depression recurrence: recurrent Active/Remission status: currently active Major depression episode severity: severe Psychotic features: without psychotic features Qualified Code(s): F33.2 - Major depressive disorder, recurrent severe without psychotic features
--- NOTE | 2018-12-22 06:10 | Discharge Summary ---
Date of Encounter: 12/22/18 Time of Encounter: 06:07 Diagnosis - Discharge Diagnosis (1) Depression Status: Acute Qualifiers: Depression Type: major depressive disorder Major depression recurrence: r ecurrent Active/Remission status: currently active Major depression episode severity: severe Psychotic features: without psychotic features Qualified Code(s): F33.2 - Major depressive disorder, recurrent severe without psychotic features Medications - Discharge Medications Prescriptions: Buspirone HCl [Buspar] 5 mg PO TID #15 tablet Ondansetron ODT [Zofran ODT] 4 mg SL Q6HR PRN #10 tab.rapdis 11/22/18 [Rx] Acetaminophen/Butalbital/Caffe [Fioricet] 1 tab PO DAILY PRN 12/21/18 [History] Buspirone HCl [Buspar] 5 mg PO TID #15 tablet 12/22/18 [Rx] Sertraline [Zoloft] 25 mg PO DAILY tablet 12/22/18 [Rx] Allergy/AdvReac Type Severity Reaction Status Date / Time cephalexin [From Keflex] Allergy Anaphylaxis Verified 12/21/18 17:21 Penicillins [PCN] Allergy See Verified 12/21/18 17:21 Comments Results Procedures and tests throughout hospitalization: Completed Lab Orders Category Date Time Status Acetaminophen Stat Lab 12/20/18 14:39 Completed Basic Metabolic Panel Stat Lab 12/20/18 14:39 Completed Complete Blood Count [HEME] Stat Lab 12/20/18 14:39 Completed Drug Screen, Urine [UCHEM] Stat Lab 12/20/18 15:00 Completed Ethanol Stat Lab 12/20/18 14:39 Completed Test Result, Urine [URIN] Stat Lab 12/20/18 15:00 Completed Salicylate Stat Lab 12/20/18 14:39 Completed Thyroid Stimulating Hormone Stat Lab 12/20/18 14:39 Completed Urinalysis reflex Microscopic [URIN] Stat Lab 12/20/18 15:00 Completed Laboratory Last Values WBC 9.4 K/mcL (4.3-11.1) 12/20/18 14:39 RBC 4.55 M/mcL (3.82-4.97) 12/20/18 14:39 Hgb 14.1 g/dL (11.5-15.4) 12/20/18 14:39 Hct 42.4 % (35.3-44.9) 12/20/18 14:39 MCV 93.2 fL (83.0-100.0) 12/20/18 14:39 MCH 31.0 pg (28.0-33.3) 12/20/18 14:39 MCHC 33.3 g/dL (31.6-35.5) 12/20/18 14:39 RDW 12.1 % (11.5-14.5) 12/20/18 14:39 Plt Count 290 K/mcL (140-400) 12/20/18 14:39 MPV 10.6 fL (9.4-12.4) 12/20/18 14:39 Immature Gran % 0.2 % (0-4) 12/20/18 14:39 Seg Neutrophils % 69.7 % 12/20/18 14:39 Lymphocytes % 23.3 % 12/20/18 14:39 Monocytes % 6.0 % 12/20/18 14:39 Eosinophils % 0.5 % 12/20/18 14:39 Basophils % 0.3 % 12/20/18 14:39 Neutrophils # 6.6 K/mcL (1.6-8.9) 12/20/18 14:39 Lymphocytes # 2.2 K/mcL (0.6-4.6) 12/20/18 14:39 Monocytes # 0.6 K/mcL (0.0-1.3) 12/20/18 14:39 Eosinophils # 0.1 K/mcL (0.0-0.6) 12/20/18 14:39 Basophils # 0.0 K/mcL (0.0-0.2) 12/20/18 14:39 Sodium 140 mEq/L (136-145) 12/20/18 14:39 Potassium 3.7 mEq/L (3.5-5.1) 12/20/18 14:39 Chloride 106 mEq/L (98-107) 12/20/18 14:39 Carbon Dioxide 25 mEq/L (23-29) 12/20/18 14:39 BUN 15 mg/dL (6-20) 12/20/18 14:39 Creatinine 0.63 mg/dL (0.60-1.20) 12/20/18 14:39 Est GFR ( Amer) > 60 (> 60) 12/20/18 14:39 Est GFR (Non-Af Amer) > 60 (> 60) 12/20/18 14:39 BUN/Creatinine Ratio 24 (6-26) 12/20/18 14:39 Glucose 103 mg/dL (70-105) 12/20/18 14:39 Calculated Osmolality 291 (280-300) 12/20/18 14:39 Calcium 9.6 mg/dL (8.6-10.3) 12/20/18 14:39 TSH 0.511 mcIU/mL (0.340-5.600) 12/20/18 14:39 Urine Color Dark Yellow (Yellow) 12/20/18 15:00 Urine Clarity Clear (Clear) 12/20/18 15:00 Urine pH 5.5 pH Units (5.0-8.0) 12/20/18 15:00 Ur Specific [place] 1.029 (1.010-1.025) H 12/20/18 15:00 Urine Protein 100 mg/dL (Neg-Trace) H 12/20/18 15:00 Urine Glucose (UA) Normal mg/dL (Normal) 12/20/18 15:00 Urine Ketones Trace mg/dL (Negative) H 12/20/18 15:00 Urine Blood Negative (Negative) 12/20/18 15:00 Urine Nitrite Negative (Negative) 12/20/18 15:00 Urine Bilirubin Small (Negative) H 12/20/18 15:00 Urine Urobilinogen Normal mg/dL (Normal) 12/20/18 15:00 Ur Leukocyte Esterase Trace (Negative) H 12/20/18 15:00 Urine Microscopic RBC 3-5 per hpf (0-3) H 12/20/18 15:00 Urine Microscopic WBC 0-3 per hpf (0-3) 12/20/18 15:00 Ur Squamous Epith Cells Many per lpf (None-Few) H 12/20/18 15:00 Urine Bacteria None Seen per hpf (None-Few) 12/20/18 15:00 Hyaline Casts None Seen per lpf (None-Few) 12/20/18 15:00 Urine Test Negative (Negative) 12/20/18 15:00 Salicylates < 2.5 mg/dL (15.0-30.0) L 12/20/18 14:39 Urine Opiates Screen Negative ng/mL (Ozhhzg=169) 12/20/18 15:00 Acetaminophen < 10 mcg/mL (10-20) L 12/20/18 14:39 Ur Barbiturates Screen Positive ng/mL (Zpchya=940) H 12/20/18 15:00 Ur Phencyclidine Scrn Negative ng/mL (Cutoff=25) 12/20/18 15:00 Ur Amphetamines Screen Negative ng/mL (Qdqmdo=0400) 12/20/18 15:00 U Benzodiazepines Scrn Negative ng/mL (Qktpdy=350) 12/20/18 15:00 Urine Cocaine Screen Negative ng/mL (Cutoff= 300) 12/20/18 15:00 U Marijuana (THC) Screen Negative ng/mL (Cutoff = 50) 12/20/18 15:00 Ur Drug Screen Interp See Below 12/20/18 15:00 Ethyl Alcohol < 10 mg/dL (Less than 10) 12/20/18 14:39 Ur C. trach DNA (PCR) NOT DETECTED (Not Detect) 12/20/18 15:00 U N.gonorrhoeae DNA PCR NOT DETECTED (Not Detect) 12/20/18 15:00 Provider Date of admission: 12/20/18 19:47 Primary care physician: PCP NONE Discharging clinician: Gina Queen Psychiatry Exam - Constitutional Vitals: Temp Pulse Resp BP Pulse Ox 98.0 F 75 16 114/73 99 12/21/18 20:15 12/21/18 20:15 12/21/18 20:15 12/21/18 20:15 12/21/18 20:15 Additional observations: Patient is alert and oriented [address] time and situation, muscle tone grossly intact, speech normal limits for rhythm, rate, content and volume. Muscle tone is normal for patient. Grooming and hygiene are appropriate and eye contact is maintained appropriately. The patient appears age appropriate. Behavior is cooperative. Thought content is negative for suicidal or homicidal thoughts ideations or plans. There are no hallucinations or delusions. Mood is good and affect is reactive, consistent and congruent. Thought process is linear, logical, goal oriented and coherent thought. Memory is intact to recent and remote as the patient is able to recall several items after a delay and can consistently recall childhood information. Language and vocabulary are consistent with education and intelligence is estimated to be average based on education and general fund of information. Concentration and attention are sustained and appropriate. Insight and judgment are intact as the patient agrees with her diagnosis and the need for ongoing mental health treatment. Hospital Course Hospital course: Ms. Patino is a 28 year old female who was admitted due to feeling overwhelmed by numerous psychosocial stressors and having some suicidal ideation. She did well on the unit and has no history of self-harm. Her suicidal thoughts resolved and she was able to rally social supports including coworkers and her [id number]. She realized that harming herself would have a negative impact on all of her children and had no intentions or plans of doing so. She had no thoughts of harming the children. She was motivated to try to work things out with her but understood that was beyond her control and had plans to continue living in the home if he left to be with his mistress. She was future oriented and wanted to get back to work to ensure that she would be able to pay her bills as well as getting back to breast-feeding her youngest child. She was started back on Zoloft and BuSpar for depression and anxiety which she had done well with in the past. Patient was educated of diagnosis and the risk-benefit side effects of this alternative treatment options and was monitored for responsiveness and side effects. Mood anxiety sleep and appetite interest improved as did future orientation. Self-harm thoughts subsided, thinking was clear and there was no psychosis present and mood was stable. Patient was able to attend both individual and group therapy sessions as well as meeting with the psychiatrist daily and urged to discuss any medication or treatment issues or other concerns. The patient was educated primarily by verbal means about their diagnosis and manifestations in their life. The option for treatment including group and individual therapy programming was offered to the patient as well as the use of medications with all their potential risks, benefits, and side effects were discussed with the patient at length. The patient was given the opportunity to ask questions and was noted to participate in the treatment in the planning process. The patient felt ready and eager to be discharged from the inpatient psychiatric unit to continue on with treatment as an outpatient. The patient agreed that is they were safe for this disposition. The patient was considered to be able to participate in informed consent and decision making with respect to medical, legal, and financial issues of the time of discharge. At the time of discharge the patient adamantly denied any concerns for lethality including suicidal or homicidal thoughts ideations or plans and was future oriented toward ongoing mental health care, medical follow-up and sobriety. Time spent discussing smoking cessation with patient: 3 to 10 minutes (N/A) Does patient wish to continue nicotine replacement upon disc: No (N/A) - Time Spent with Patient Total time spent providing and/or coordinating discharge services: Less than 30 minutes (Interval history reviewed. Available labs reviewed . Psychotherapy provided. Patient had an opportunity to ask questions and address concerns. Patient was in agreement with the treatment plan. The risks benefits and side effects of medications were discussed with the patient, including alternatives and treatment. The patient was educated on the abstaining from any alcohol or illicit substances, following up with all scheduled appointments, and taking all medications as prescribed.) Assessment and Plan - Patient/Caregiver Discharge Instructions Activity: resume usual activities as tolerated, return to work Diet: regular diet Additional Instructions: Continue current medications. Follow up with outpatient mental health. Encour age continued therapy in a group or individual setting. The patient was discharged to home. - Follow up Plan Follow up with: NONE,PCP [Primary Care Provider] - Functional capacity at discharge: independent ambulation Overall status at discharge: Stable Disposition: Home, Self-Care Quality - Multiple Antipsychotics Patient discharged on 2 or more antipsychotic medications: No Procedures - Procedures Procedures: Medication Management, Crisis Stabilization, Supportive Therapy, Group Therapy, Psychoeducational Therapy
[2018-12-22 09:10] VITALS: BP 124/72
== END 2018-12-22 09:45 | disposition home or self-care (01) | DRG 885 ==
LOC: EMEROOARM 14:04 → 1ANU 19:47 → SUATTDRO 19:47 → 1ANU 21:00
PROVIDERS: ADMIT Psychiatry & Neurology Psychiatry; ATTEND Psychiatry & Neurology Psychiatry

== ENCOUNTER 2019-08-13 11:28 | Observation (INO) ==
[2019-08-13] MEDS ORDERED: Morphine Sulfate 2 MG/ML SYRINGE IVP ONE ×2 (11:55→12:47)
[2019-08-13] MEDS ORDERED: Ondansetron 4 MG/2 ML VIAL IVP ONE (11:55)
[2019-08-13] MEDS ORDERED: 0.9 % Sodium Chloride 1,000 ML IVC ONE ×2 (11:56→16:40)
[2019-08-13 12:17] LABS: Hematocrit 45.4 % (35.3-44.9); Monocytes % 6.6 %
[2019-08-13] MEDS ORDERED: Isovue-370 500 ML BOTTLE IVP ONE ×2 (12:18→16:50)
[2019-08-13 12:19] LABS: Basophils # 0.1 K/mcL (0.0-0.2); Basophils % 0.2 %; Eosinophils # 0.2 K/mcL (0.0-0.6); Eosinophils % 0.9 %; Hemoglobin 15.1 g/dL (11.5-15.4); Immature Granulocytes % 0.7 % (0-4); Lymphocytes # 1.8 K/mcL (0.6-4.6); Lymphocytes % 6.7 %; Mean Corpuscular HGB Conc 33.3 g/dL (31.6-35.5); Mean Corpuscular Hemoglobin 32.4 pg (28.0-33.3); Mean Corpuscular Volume 97.4 fL (83.0-100.0); Mean Platelet Volume 10.2 fL (9.4-12.4); Monocytes # 1.7 K/mcL (0.0-1.3); Neutrophils # 22.3 K/mcL (1.6-8.9); Platelet Count 339 K/mcL (140-400); Red Blood Count 4.66 M/mcL (3.82-4.97); Segmented Neutrophils % 84.9 %; White Blood Count 26.3 K/mcL (4.3-11.1)
[2019-08-13 12:32] LABS: Albumin 5.2 g/dL (3.5-5.7); Albumin/Globulin Ratio 1.8 (1.1-2.2); BUN/Creatinine Ratio 20 (6-26); Bilirubin,Direct 0.1 mg/dL (0.0-0.2); Bilirubin,Indirect 0.4 mg/dL (0.0-1.2); Bilirubin,Total 0.5 mg/dL (0.3-1.0); Blood Urea Nitrogen 15 mg/dL (6-20); Calcium 9.8 mg/dL (8.6-10.3); Carbon Dioxide 27 mEq/L (23-29); Chloride 103 mEq/L (98-107); Globulin 2.9 g/dL (2.4-3.5); Glucose 96 mg/dL (70-105); Osmolality,Calculated 285 (280-300); Potassium 3.7 mEq/L (3.5-5.1); Sodium 137 mEq/L (136-145); Total Protein 8.1 g/dL (6.4-8.9); eGFR For African Americans > 60 (> 60); eGFR For Non-African Americans > 60 (> 60)
[2019-08-13 12:33] LABS: Platelet Estimate Normal (Normal)
[2019-08-13 12:41] LABS: Bilirubin,Urine Negative (Negative); Blood,Urine Negative (Negative); Clarity,Urine Clear (Clear); Color,Urine Yellow (Yellow); Glucose,Urine (UA) Normal (Normal); Ketones,Urine Negative (Negative); Leukocyte Esterase,Urine Negative (Negative); Nitrite,Urine Negative (Negative); PH,Urine 5.5 pH Units (5.0-8.0); Protein,Urine 30 mg/dL (Neg-Trace); Specific Gravity,Urine 1.029 (1.010-1.025); Urobilinogen,Urine Normal (Normal)
[2019-08-13 12:53] LABS: RBC,Urine 0-3 per hpf (0-3); Squamous Epithelial Cell,Urine Few per lpf (None-Few); WBC,Urine 0-3 per hpf (0-3)
[2019-08-13 12:54] LABS: Bacteria,Urine Few per hpf (None-Few)
[2019-08-13 12:58] LABS: Lipase 26 Units/L (11-82)
[2019-08-13] MEDS ORDERED: cefTRIAXone 2,000 MG in Water for inj. (sterile) 20 ML IVP SCH (21:00)
[2019-08-13] MEDS ORDERED: *HR* Promethazine 25 MG/ML VIAL IVP PRN (22:07)
[2019-08-13] MEDS ORDERED: Naloxone 0.4 MG/ML INJ IVP PRN (22:07)
[2019-08-14 00:17] LABS: Amphetamine Screen,Urine Negative ng/mL (Cutoff=1000); Barbiturate Screen,Urine Positive ng/mL (Cutoff=200); Benzodiazepines Screen,Urine Negative ng/mL (Cutoff=200); Cannabinoid Screen,Urine Negative ng/mL (Cutoff = 50); Cocaine Screen,Urine Negative ng/mL (Cutoff= 300); Opiate Screen,Urine Positive ng/mL (Cutoff=300); Phencyclidine Screen,Urine Negative ng/mL (Cutoff=25)
[2019-08-14] MEDS: MetroNIDAZOLE 500 MG/100 ML 500 MG/100 ML BAG IVPB SCH ×3 (00:42→16:20)
[2019-08-14 08:01] LABS: Basophils % 0.3 %; Eosinophils # 0.2 K/mcL (0.0-0.6); Eosinophils % 2.5 %; Immature Granulocytes % 0.3 % (0-4); Lymphocytes # 1.4 K/mcL (0.6-4.6); Lymphocytes % 18.8 %; Mean Corpuscular HGB Conc 32.6 g/dL (31.6-35.5); Mean Corpuscular Hemoglobin 32.2 pg (28.0-33.3); Mean Corpuscular Volume 98.7 fL (83.0-100.0); Mean Platelet Volume 10.5 fL (9.4-12.4); Monocytes # 0.7 K/mcL (0.0-1.3); Monocytes % 8.6 %; Neutrophils # 5.3 K/mcL (1.6-8.9); Platelet Count 224 K/mcL (140-400); Red Blood Count 3.85 M/mcL (3.82-4.97); Red Cell Distribution Width 12.2 % (11.5-14.5); Segmented Neutrophils % 69.5 %
[2019-08-14 08:05] LABS: White Blood Count 7.6 K/mcL (4.3-11.1)
[2019-08-14 08:06] LABS: Hemoglobin 12.4 g/dL (11.5-15.4)
[2019-08-14 08:27] LABS: Alanine Aminotransferase 260 Units/L (7-52); Albumin 4.1 g/dL (3.5-5.7); Albumin/Globulin Ratio 1.7 (1.1-2.2); Alkaline Phosphatase 98 Units/L (34-104); Aspartate Amino Transferase 201 Units/L (13-39); BUN/Creatinine Ratio 18 (6-26); Bilirubin,Total 1.2 mg/dL (0.3-1.0); Blood Urea Nitrogen 10 mg/dL (6-20); Calcium 8.6 mg/dL (8.6-10.3); Carbon Dioxide 25 mEq/L (23-29); Chloride 107 mEq/L (98-107); Globulin 2.4 g/dL (2.4-3.5); Glucose 83 mg/dL (70-105); Osmolality,Calculated 286 (280-300); Potassium 3.6 mEq/L (3.5-5.1); Sodium 139 mEq/L (136-145); Total Protein 6.5 g/dL (6.4-8.9); eGFR For African Americans > 60 (> 60); eGFR For Non-African Americans > 60 (> 60)
[2019-08-14] MEDS: Ringers Solution, Lactated 1,000 ML IVC SCH ×3 (11:30→18:40)
[2019-08-14] MEDS: *HR* OxyCODONE Immed Rel 5 MG TABLET PO PRN ×3 (11:31→20:43)
[2019-08-14] MEDS: Ondansetron ODT 4 MG TAB.RAPDIS SL PRN ×2 (11:32→16:21)
[2019-08-14 15:14] LABS: Lipase 32 Units/L (11-82)
[2019-08-14] MEDS: *HR* FentaNYL (PF) 100 MCG/2 ML VIAL IVP PRN (18:39)
[2019-08-15] MEDS: Ondansetron ODT 4 MG TAB.RAPDIS SL PRN (00:16)
[2019-08-15] MEDS: MetroNIDAZOLE 500 MG/100 ML 500 MG/100 ML BAG IVPB SCH ×2 (00:16→08:48)
[2019-08-15] MEDS: *HR* FentaNYL (PF) 100 MCG/2 ML VIAL IVP PRN (00:16)
[2019-08-15 04:16] LABS: Alanine Aminotransferase 162 Units/L (7-52); Albumin 3.6 g/dL (3.5-5.7); Albumin/Globulin Ratio 1.8 (1.1-2.2); Alkaline Phosphatase 84 Units/L (34-104); Aspartate Amino Transferase 74 Units/L (13-39); BUN/Creatinine Ratio 14 (6-26); Bilirubin,Total 0.6 mg/dL (0.3-1.0); Blood Urea Nitrogen 8 mg/dL (6-20); Calcium 8.1 mg/dL (8.6-10.3); Carbon Dioxide 22 mEq/L (23-29); Chloride 107 mEq/L (98-107); Glucose 71 mg/dL (70-105); Osmolality,Calculated 281 (280-300); Potassium 3.6 mEq/L (3.5-5.1); Sodium 137 mEq/L (136-145); Total Protein 5.6 g/dL (6.4-8.9); eGFR For African Americans > 60 (> 60); eGFR For Non-African Americans > 60 (> 60)
[2019-08-15] MEDS: Ringers Solution, Lactated 1,000 ML IVC SCH (05:03)
[2019-08-15 06:34] VITALS: BP 102/65
[2019-08-15] MEDS: *HR* OxyCODONE Immed Rel 5 MG TABLET PO PRN (08:52)
== END 2019-08-15 12:04 | disposition home or self-care (01) ==
LOC: EMEROOARM 11:28 → 3BNU 11:28
PROVIDERS: ADMIT Pharmacist; ATTEND Pharmacist

== ENCOUNTER 2019-11-07 00:57 | Observation (INO) ==
[2019-11-07] MEDS ORDERED: Morphine Sulfate 2 MG/ML SYRINGE IVP ONE ×2 (01:09→05:50)
[2019-11-07] MEDS ORDERED: 0.9 % Sodium Chloride 1,000 ML IV ONE ×3 (01:09→05:50)
[2019-11-07] MEDS ORDERED: Metoclopramide 10 MG/2 ML VIAL IVP ONE (01:10)
[2019-11-07 03:26] LABS: Basophils % 0.1 %; Eosinophils # 0.1 K/mcL (0.0-0.6); Eosinophils % 0.3 %; Hematocrit 40.8 % (35.3-44.9); Immature Granulocytes % 0.3 % (0-4); Lymphocytes # 0.5 K/mcL (0.6-4.6); Lymphocytes % 2.7 %; Mean Corpuscular HGB Conc 34.3 g/dL (31.6-35.5); Mean Corpuscular Hemoglobin 32.1 pg (28.0-33.3); Mean Corpuscular Volume 93.6 fL (83.0-100.0); Mean Platelet Volume 10.2 fL (9.4-12.4); Monocytes # 0.7 K/mcL (0.0-1.3); Monocytes % 3.7 %; Platelet Count 268 K/mcL (140-400); Red Blood Count 4.36 M/mcL (3.82-4.97); Red Cell Distribution Width 11.8 % (11.5-14.5); Segmented Neutrophils % 92.9 %; White Blood Count 19.4 K/mcL (4.3-11.1)
[2019-11-07] MEDS ORDERED: Isovue-370 500 ML BOTTLE IVP ONE (03:42)
[2019-11-07 03:48] LABS: Alanine Aminotransferase 23 Units/L (7-52); Albumin 4.4 g/dL (3.5-5.7); Albumin/Globulin Ratio 1.7 (1.1-2.2); Alkaline Phosphatase 49 Units/L (34-104); Aspartate Amino Transferase 23 Units/L (13-39); BUN/Creatinine Ratio 34 (6-26); Bilirubin,Direct 0.2 mg/dL (0.0-0.2); Bilirubin,Indirect 0.5 mg/dL (0.0-1.0); Bilirubin,Total 0.7 mg/dL (0.3-1.0); Blood Urea Nitrogen 22 mg/dL (6-20); Carbon Dioxide 24 mEq/L (23-29); Chloride 104 mEq/L (98-107); Globulin 2.6 g/dL (2.4-3.5); Glucose 146 mg/dL (70-105); Lipase 33 Units/L (11-82); Osmolality,Calculated 292 (280-300); Potassium 3.4 mEq/L (3.5-5.1); Sodium 138 mEq/L (136-145); eGFR For African Americans > 60 (> 60); eGFR For Non-African Americans > 60 (> 60)
[2019-11-07 04:47] LABS: Bilirubin,Urine Negative (Negative); Blood,Urine Large (Negative); Clarity,Urine Clear (Clear); Color,Urine Dark Yellow (Yellow); Glucose,Urine (UA) Normal (Normal); Ketones,Urine Negative (Negative); Leukocyte Esterase,Urine Negative (Negative); Nitrite,Urine Negative (Negative); PH,Urine 5.5 pH Units (5.0-8.0); Protein,Urine 30 mg/dL (Neg-Trace); Specific Gravity,Urine > 1.030 (1.010-1.025); Urobilinogen,Urine Normal (Normal)
[2019-11-07 04:48] LABS: Hyaline Casts,Urine None Seen per lpf (None-Few); Squamous Epithelial Cell,Urine Many per lpf (None-Few)
[2019-11-07 05:05] LABS: Bacteria,Urine Few per hpf (None-Few)
[2019-11-07] MEDS ORDERED: Ondansetron 4 MG/2 ML VIAL IVP ONE (05:50)
[2019-11-07] MEDS ORDERED: Aminoglycoside Consult 1 EACH MC ONE (06:45)
[2019-11-07] MEDS ORDERED: Ringers Solution, Lactated 1,000 ML IVC ONE (07:43)
[2019-11-07] MEDS ORDERED: MetroNIDAZOLE 500 MG/100 ML 500 MG/100 ML BAG IVPB SCH (08:00)
[2019-11-07] MEDS ORDERED: Vancomycin (wt based) 1,000 MG VIAL IVPB SCH (08:00)
[2019-11-07] MEDS ORDERED: Naloxone 0.4 MG/ML INJ IVP PRN (08:02)
[2019-11-07] MEDS ORDERED: *HR* HYDROmorphone (PF) 1 MG/ML SYRINGE IVP ONE (08:17)
[2019-11-07] MEDS ORDERED: *HR* HYDROmorphone (PF) 1 MG/ML SYRINGE IVP PRN (08:18)
[2019-11-07 09:07] LABS: Bilirubin,Urine Negative (Negative); Blood,Urine Trace (Negative); Clarity,Urine Clear (Clear); Color,Urine Yellow (Yellow); Glucose,Urine (UA) Normal (Normal); Ketones,Urine Negative (Negative); Leukocyte Esterase,Urine Negative (Negative); Nitrite,Urine Negative (Negative); PH,Urine 5.5 pH Units (5.0-8.0); Protein,Urine Negative (Neg-Trace); Specific Gravity,Urine > 1.030 (1.010-1.025); Urobilinogen,Urine Normal (Normal)
[2019-11-07 09:10] LABS: Bacteria,Urine None Seen per hpf (None-Few); Hyaline Casts,Urine None Seen per lpf (None-Few); RBC,Urine 0-3 per hpf (0-3); Squamous Epithelial Cell,Urine Many per lpf (None-Few); WBC,Urine 0-3 per hpf (0-3)
[2019-11-07 09:26] LABS: INR 1.1; Prothrombin Time 12.7 Seconds (9.4-12.1)
[2019-11-07 09:37] LABS: Estimated Average Glucose 97 mg/dl
[2019-11-07] MEDS ORDERED: levoFLOXacin 750 MG/150 ML 750 MG/150 ML BAG IVPB SCH ×2 (10:00→14:00)
[2019-11-07 10:36] LABS: Chol/HDL Ratio 2.7 (0-4.9); Magnesium 1.5 mg/dL (1.6-2.6); Thyroid Stimulating Hormone 1.17 mcIU/mL (0.340-5.600)
[2019-11-07] MEDS ORDERED: Potassium Chloride Elixir 20 MEQ/15 ML UDC PO ONE (13:53)
[2019-11-07] MEDS: MetroNIDAZOLE 500 MG/100 ML 500 MG/100 ML BAG IVPB SCH ×2 (14:52→20:59)
[2019-11-07] MEDS ORDERED: Ringers Solution, Lactated 1,000 ML IVC SCH (15:30)
[2019-11-07] MEDS: *HR* HYDROmorphone (PF) 1 MG/ML SYRINGE IVP PRN ×2 (17:51→22:15)
[2019-11-07] MEDS: *HR* Heparin 5,000 UNIT/ML VIAL SQ SCH (17:58)
[2019-11-07] MEDS: levoFLOXacin 750 MG/150 ML 750 MG/150 ML BAG IVPB SCH (18:12)
[2019-11-07] MEDS: Ondansetron ODT 4 MG TAB.RAPDIS SL PRN (18:53)
[2019-11-07] MEDS: Acetaminophen/Butalbital/CaffeineTABLET PO ONE (22:35)
[2019-11-08] MEDS: Acetaminophen/Butalbital/CaffeineTABLET PO ONE (03:56)
[2019-11-08] MEDS: MetroNIDAZOLE 500 MG/100 ML 500 MG/100 ML BAG IVPB SCH ×3 (03:56→19:55)
[2019-11-08] MEDS: *HR* Heparin 5,000 UNIT/ML VIAL SQ SCH ×2 (03:57→16:42)
[2019-11-08] MEDS: *HR* HYDROmorphone (PF) 1 MG/ML SYRINGE IVP PRN (04:10)
[2019-11-08 06:49] LABS: Basophils % 0.2 %; Eosinophils # 0.1 K/mcL (0.0-0.6); Eosinophils % 2.1 %; Hematocrit 33.3 % (35.3-44.9); Immature Granulocytes % 0.2 % (0-4); Lymphocytes # 0.9 K/mcL (0.6-4.6); Lymphocytes % 15.4 %; Mean Corpuscular Hemoglobin 32.4 pg (28.0-33.3); Mean Corpuscular Volume 98.2 fL (83.0-100.0); Mean Platelet Volume 10.3 fL (9.4-12.4); Monocytes # 0.7 K/mcL (0.0-1.3); Monocytes % 11.5 %; Neutrophils # 4.1 K/mcL (1.6-8.9); Platelet Count 175 K/mcL (140-400); Red Blood Count 3.39 M/mcL (3.82-4.97); Red Cell Distribution Width 12.1 % (11.5-14.5); Segmented Neutrophils % 70.6 %
[2019-11-08 06:51] LABS: White Blood Count 5.8 K/mcL (4.3-11.1)
[2019-11-08 07:10] LABS: Alanine Aminotransferase 112 Units/L (7-52); Albumin 3.2 g/dL (3.5-5.7); Alkaline Phosphatase 53 Units/L (34-104); Aspartate Amino Transferase 80 Units/L (13-39); BUN/Creatinine Ratio 13 (6-26); Bilirubin,Total 0.8 mg/dL (0.3-1.0); Blood Urea Nitrogen 7 mg/dL (6-20); Calcium 7.6 mg/dL (8.6-10.3); Carbon Dioxide 24 mEq/L (23-29); Chloride 108 mEq/L (98-107); Globulin 1.6 g/dL (2.4-3.5); Glucose 95 mg/dL (70-105); Osmolality,Calculated 288 (280-300); Potassium 3.2 mEq/L (3.5-5.1); Sodium 140 mEq/L (136-145); Total Protein 4.8 g/dL (6.4-8.9); eGFR For African Americans > 60 (> 60); eGFR For Non-African Americans > 60 (> 60)
[2019-11-08] MEDS: Ondansetron ODT 4 MG TAB.RAPDIS SL PRN ×2 (08:55→17:12)
[2019-11-08] MEDS ORDERED: Acetaminophen 325 MG TABLET PO PRN (08:59)
[2019-11-08 10:35] LABS: Lipase 13 Units/L (11-82)
[2019-11-08] MEDS: 0.9 % Sodium Chloride 1,000 ML IVC SCH (10:37)
[2019-11-08] MEDS ORDERED: Acetaminophen/Butalbital/CaffeineTABLET PO PRN (17:00)
[2019-11-08] MEDS: levoFLOXacin 750 MG/150 ML 750 MG/150 ML BAG IVPB SCH (18:15)
[2019-11-09] MEDS: Ondansetron ODT 4 MG TAB.RAPDIS SL PRN (00:07)
[2019-11-09] MEDS: 0.9 % Sodium Chloride 1,000 ML IVC SCH (00:15)
[2019-11-09] MEDS: MetroNIDAZOLE 500 MG/100 ML 500 MG/100 ML BAG IVPB SCH (03:38)
[2019-11-09] MEDS: *HR* Heparin 5,000 UNIT/ML VIAL SQ SCH (03:48)
[2019-11-09 04:51] LABS: Hematocrit 36.8 % (35.3-44.9); Hemoglobin 12.3 g/dL (11.5-15.4); Mean Corpuscular HGB Conc 33.4 g/dL (31.6-35.5); Mean Corpuscular Hemoglobin 32.2 pg (28.0-33.3); Mean Corpuscular Volume 96.3 fL (83.0-100.0); Mean Platelet Volume 10.6 fL (9.4-12.4); Platelet Count 226 K/mcL (140-400); Red Blood Count 3.82 M/mcL (3.82-4.97); Red Cell Distribution Width 11.9 % (11.5-14.5); White Blood Count 7.3 K/mcL (4.3-11.1)
[2019-11-09 05:08] LABS: Alanine Aminotransferase 94 Units/L (7-52); Albumin 3.4 g/dL (3.5-5.7); Albumin/Globulin Ratio 1.7 (1.1-2.2); Alkaline Phosphatase 68 Units/L (34-104); Aspartate Amino Transferase 46 Units/L (13-39); BUN/Creatinine Ratio 14 (6-26); Bilirubin,Total 0.5 mg/dL (0.3-1.0); Blood Urea Nitrogen 9 mg/dL (6-20); Calcium 7.9 mg/dL (8.6-10.3); Carbon Dioxide 19 mEq/L (23-29); Chloride 109 mEq/L (98-107); Glucose 62 mg/dL (70-105); Osmolality,Calculated 289 (280-300); Potassium 3.4 mEq/L (3.5-5.1); Sodium 141 mEq/L (136-145); Total Protein 5.4 g/dL (6.4-8.9); eGFR For African Americans > 60 (> 60); eGFR For Non-African Americans > 60 (> 60)
[2019-11-09] MEDS ORDERED: levoFLOXacin 750 MG TABLET PO SCH (12:00)
[2019-11-09 12:37] VITALS: BP 102/67
[2019-11-10 07:54] LABS: ANA IgG by ELISA DETECTED (None Detected)
[2019-11-11 17:40] LABS: ANA HEp-2 IgG IFA <1:80 (<1:80)
== END 2019-11-09 13:31 | disposition home or self-care (01) ==
LOC: 2ANU 00:57 → EMEROOARM 00:57 → SUATTDRO 06:44 → 2NNU 09:50 → 2ANU 11-08 16:28
PROVIDERS: ADMIT Internal Medicine; ATTEND Family Medicine

== ENCOUNTER 2020-01-21 14:18 | Observation (INO) ==
[2020-01-21] MEDS ORDERED: Ringers Solution, Lactated 1,000 ML ONE (16:23)
[2020-01-21 17:34] LABS: Basophils % 0.2 %; Eosinophils # 0.1 K/mcL (0.0-0.6); Eosinophils % 0.6 %; Hematocrit 37.7 % (35.3-44.9); Hemoglobin 12.7 g/dL (11.5-15.4); Immature Granulocytes % 0.3 % (0-4); Lymphocytes # 2.8 K/mcL (0.6-4.6); Lymphocytes % 22.9 %; Mean Corpuscular HGB Conc 33.7 g/dL (31.6-35.5); Mean Corpuscular Hemoglobin 31.5 pg (28.0-33.3); Mean Corpuscular Volume 93.5 fL (83.0-100.0); Mean Platelet Volume 10.2 fL (9.4-12.4); Monocytes # 0.7 K/mcL (0.0-1.3); Monocytes % 5.9 %; Neutrophils # 8.6 K/mcL (1.6-8.9); Platelet Count 279 K/mcL (140-400); Red Blood Count 4.03 M/mcL (3.82-4.97); Red Cell Distribution Width 12.6 % (11.5-14.5); Segmented Neutrophils % 70.1 %; White Blood Count 12.2 K/mcL (4.3-11.1)
[2020-01-21 17:52] LABS: Alanine Aminotransferase 15 Units/L (7-52); Albumin 4.4 g/dL (3.5-5.7); Albumin/Globulin Ratio 1.6 (1.1-2.2); Alkaline Phosphatase 52 Units/L (34-104); Aspartate Amino Transferase 15 Units/L (13-39); BUN/Creatinine Ratio 23 (6-26); Bilirubin,Direct 0.1 mg/dL (0.0-0.2); Bilirubin,Indirect 0.3 mg/dL (0.0-1.0); Bilirubin,Total 0.4 mg/dL (0.3-1.0); Blood Urea Nitrogen 13 mg/dL (6-20); Calcium 9.3 mg/dL (8.6-10.3); Carbon Dioxide 24 mEq/L (23-29); Chloride 107 mEq/L (98-107); Globulin 2.7 g/dL (2.4-3.5); Glucose 82 mg/dL (70-105); Osmolality,Calculated 281 (280-300); Potassium 3.5 mEq/L (3.5-5.1); Sodium 136 mEq/L (136-145); Total Protein 7.1 g/dL (6.4-8.9); eGFR For African Americans > 60 (> 60); eGFR For Non-African Americans > 60 (> 60)
[2020-01-21] MEDS ORDERED: Ibuprofen 600 MG TABLET PO PRN (18:17)
[2020-01-21] MEDS ORDERED: Ondansetron ODT 4 MG TAB.RAPDIS SL PRN (18:18)
[2020-01-21] MEDS: *HR* HYDROcodone/Acet 5/325 mg TABLET PO PRN (19:45)
[2020-01-21] MEDS: Ringers Solution, Lactated 1,000 ML IVC SCH (19:48)
[2020-01-22] MEDS: *HR* HYDROcodone/Acet 5/325 mg TABLET PO PRN
[2020-01-22] MEDS: Ringers Solution, Lactated 1,000 ML IVC SCH ×3 (04:33→20:38)
[2020-01-22 04:42] LABS: Basophils % 0.3 %; Eosinophils % 1.8 %; Hematocrit 35.6 % (35.3-44.9); Hemoglobin 11.8 g/dL (11.5-15.4); Immature Granulocytes % 0.1 % (0-4); Lymphocytes % 36.7 %; Mean Corpuscular HGB Conc 33.1 g/dL (31.6-35.5); Mean Corpuscular Hemoglobin 31.2 pg (28.0-33.3); Mean Corpuscular Volume 94.2 fL (83.0-100.0); Mean Platelet Volume 10.3 fL (9.4-12.4); Platelet Count 247 K/mcL (140-400); Red Blood Count 3.78 M/mcL (3.82-4.97); Red Cell Distribution Width 12.7 % (11.5-14.5); Segmented Neutrophils % 54.1 %; White Blood Count 8.9 K/mcL (4.3-11.1)
[2020-01-22 04:43] LABS: Eosinophils # 0.2 K/mcL (0.0-0.6); Lymphocytes # 3.3 K/mcL (0.6-4.6); Monocytes # 0.6 K/mcL (0.0-1.3); Neutrophils # 4.8 K/mcL (1.6-8.9)
[2020-01-22] MEDS: Ondansetron 4 MG/2 ML VIAL IVP PRN (11:20)
[2020-01-22] MEDS: *HR* FentaNYL (PF) 100 MCG/2 ML VIAL IVP PRN ×2 (13:15→20:35)
[2020-01-23] MEDS ORDERED: *HR* FentaNYL (PF) 100 MCG/2 ML VIAL ONE (00:29)
[2020-01-23] MEDS ORDERED: *HR* Midazolam HCl 2 MG/2 ML VIAL ONE (00:29)
[2020-01-23] MEDS ORDERED: *HR* Propofol 200 MG/20 ML VIAL IVP ONE (00:29)
[2020-01-23] MEDS ORDERED: *HR* Cisatracurium 10 MG/5 ML VIAL IV ONE (00:30)
[2020-01-23] MEDS ORDERED: Bupivacaine/EPI 1:200k 0.25%PF 10 ML VIAL INFILT ONE (00:37)
[2020-01-23] MEDS ORDERED: Methylergonovine 0.2 MG/ML AMPUL IM ONE (00:37)
[2020-01-23] MEDS ORDERED: *HR* OxyCODONE Immed Rel 5 MG TABLET PO PRN (00:43)
[2020-01-23] MEDS ORDERED: Lidocaine HCL 4 ML Topical Solution (Laryng-O-Jet Kit Sterile Pak) TP ONE (00:57)
[2020-01-23] MEDS ORDERED: Clindamycin 900 MG/50 ML 900 MG/50 ML IV.SOLN IVPB ONE (01:13)
[2020-01-23] MEDS ORDERED: Acetaminophen IV 1,000 MG/100 ML INFUS..BTL ONE (01:16)
[2020-01-23] MEDS: *HR* HYDROmorphone PF 0.5 MG/0.5 ML SYRINGE IVP PRN ×4 (03:06→03:21)
[2020-01-23] MEDS: Ondansetron 4 MG/2 ML VIAL IVP PRN (03:14)
[2020-01-23] MEDS ORDERED: Ondansetron 4 MG/2 ML VIAL IVP PRN (03:47)
[2020-01-23] MEDS ORDERED: Ibuprofen 600 MG TABLET PO PRN (03:47)
[2020-01-23] MEDS ORDERED: Naloxone 0.4 MG/ML INJ IVP PRN (03:47)
[2020-01-23] MEDS: Ringers Solution, Lactated 1,000 ML IVC SCH ×3 (04:11→08:19)
[2020-01-23] MEDS: *HR* HYDROcodone/Acet 5/325 mg TABLET PO PRN ×3 (04:11→13:34)
[2020-01-23 12:20] VITALS: BP 98/57
== END 2020-01-23 15:15 | disposition home or self-care (01) ==
LOC: 1NENUPED → 3BNU 17:57
PROVIDERS: ADMIT Obstetrics & Gynecology; ATTEND Obstetrics & Gynecology

== ENCOUNTER 2021-03-18 20:36 | Observation (INO) ==
[2021-03-18] MEDS ORDERED: Isovue-370 500 ML BOTTLE IVP ONE (22:18)
[2021-03-18] MEDS ORDERED: Morphine Sulfate 2 MG/ML SYRINGE IVP ONE (22:19)
[2021-03-18] MEDS ORDERED: Ondansetron 4 MG/2 ML VIAL IVP ONE (22:19)
[2021-03-18 22:21] LABS: Basophils % 0.3 %; Eosinophils # 0.2 K/mcL (0.0-0.6); Eosinophils % 1.9 %; Hematocrit 38.1 % (35.3-44.9); Hemoglobin 12.7 g/dL (11.5-15.4); Immature Granulocytes % 0.3 % (0-4); Lymphocytes # 2.5 K/mcL (0.6-4.6); Lymphocytes % 21.2 %; Mean Corpuscular HGB Conc 33.3 g/dL (31.6-35.5); Mean Corpuscular Hemoglobin 31.7 pg (28.0-33.3); Mean Platelet Volume 10.6 fL (9.4-12.4); Monocytes # 0.8 K/mcL (0.0-1.3); Monocytes % 6.3 %; Neutrophils # 8.3 K/mcL (1.6-8.9); Platelet Count 274 K/mcL (140-400); Red Blood Count 4.01 M/mcL (3.82-4.97); Red Cell Distribution Width 11.9 % (11.5-14.5); White Blood Count 11.9 K/mcL (4.3-11.1)
[2021-03-18 22:29] LABS: INR 1.1; Prothrombin Time 12.7 Seconds (9.4-12.1)
[2021-03-18 22:31] LABS: Alanine Aminotransferase 26 Units/L (7-52); Albumin 4.5 g/dL (3.5-5.7); Albumin/Globulin Ratio 1.7 (1.1-2.2); Alkaline Phosphatase 61 Units/L (34-104); Aspartate Amino Transferase 25 Units/L (13-39); BUN/Creatinine Ratio 18 (6-26); Bilirubin,Indirect 0.3 mg/dL (0.0-1.0); Bilirubin,Total 0.3 mg/dL (0.3-1.0); Blood Urea Nitrogen 13 mg/dL (6-20); Calcium 9.3 mg/dL (8.6-10.3); Carbon Dioxide 27 mEq/L (23-29); Chloride 103 mEq/L (98-107); Globulin 2.7 g/dL (2.4-3.5); Glucose 91 mg/dL (70-105); Osmolality,Calculated 288 (280-300); Potassium 3.6 mEq/L (3.5-5.1); Sodium 139 mEq/L (136-145); Total Protein 7.2 g/dL (6.4-8.9); eGFR For African Americans > 60 (> 60); eGFR For Non-African Americans > 60 (> 60)
[2021-03-18 22:32] LABS: Activated Partial Thrombo Time 30.2 Seconds (26.0-36.0); Troponin I < 0.03 ng/mL (< 0.04)
[2021-03-19] MEDS ORDERED: *HR* HYDROmorphone (PF) 1 MG/ML SYRINGE IVP ONE (00:52)
[2021-03-19] MEDS ORDERED: Ondansetron 4 MG/2 ML VIAL IVP ONE (00:57)
[2021-03-19 03:00] LABS: Lipase 26 Units/L (11-82)
[2021-03-19] MEDS ORDERED: Naloxone 0.4 MG/ML INJ IVP PRN (03:54)
[2021-03-19] MEDS ORDERED: Melatonin 3 MG TABLET PO PRN (03:54)
[2021-03-19] MEDS ORDERED: 0.9 % Sodium Chloride 1,000 ML IVC ONE (03:55)
[2021-03-19 06:35] LABS: Hematocrit 36.8 % (35.3-44.9); Hemoglobin 12.2 g/dL (11.5-15.4); Mean Corpuscular HGB Conc 33.2 g/dL (31.6-35.5); Mean Corpuscular Volume 96.6 fL (83.0-100.0); Mean Platelet Volume 10.7 fL (9.4-12.4); Platelet Count 216 K/mcL (140-400); Red Blood Count 3.81 M/mcL (3.82-4.97); Red Cell Distribution Width 11.9 % (11.5-14.5); White Blood Count 7.1 K/mcL (4.3-11.1)
[2021-03-19 07:04] LABS: Alanine Aminotransferase 218 Units/L (7-52); Albumin 3.9 g/dL (3.5-5.7); Albumin/Globulin Ratio 1.7 (1.1-2.2); Alkaline Phosphatase 129 Units/L (34-104); Aspartate Amino Transferase 286 Units/L (13-39); BUN/Creatinine Ratio 14 (6-26); Bilirubin,Total 0.6 mg/dL (0.3-1.0); Blood Urea Nitrogen 10 mg/dL (6-20); Calcium 8.6 mg/dL (8.6-10.3); Carbon Dioxide 27 mEq/L (23-29); Chloride 106 mEq/L (98-107); Chol/HDL Ratio 3.7 (0-4.9); Cholesterol 139 mg/dL (< 200); Globulin 2.3 g/dL (2.4-3.5); Glucose 94 mg/dL (70-105); HDL Cholesterol 38 mg/dL (40-59); LDL Cholesterol,Calculated 74 mg/dL (< 100); Magnesium 1.7 mg/dL (1.6-2.6); Osmolality,Calculated 287 (280-300); Phosphorous 3.1 mg/dL (2.7-4.5); Potassium 3.5 mEq/L (3.5-5.1); Sodium 139 mEq/L (136-145); Total Protein 6.2 g/dL (6.4-8.9); Triglycerides 135 mg/dL (< 150); eGFR For African Americans > 60 (> 60); eGFR For Non-African Americans > 60 (> 60)
[2021-03-19] MEDS: Ondansetron 4 MG/2 ML VIAL IVP PRN ×2 (07:57→20:23)
[2021-03-19] MEDS ORDERED: Acetaminophen/Butalbital/CaffeineTABLET PO ONE (08:41)
[2021-03-19] MEDS: BuPROPion XL (24 HR) 150 MG TABLET PO SCH (09:01)
[2021-03-19 11:55] LABS: Bilirubin,Urine Negative (Negative); Blood,Urine Negative (Negative); Clarity,Urine Clear (Clear); Color,Urine Yellow (Yellow); Glucose,Urine (UA) Normal (Normal); Ketones,Urine Negative (Negative); Leukocyte Esterase,Urine Trace (Negative); Mucus,Urine Few per lpf (None-Few); Nitrite,Urine Negative (Negative); PH,Urine 6.5 pH Units (5.0-8.0); Protein,Urine Trace mg/dL (Neg-Trace); RBC,Urine 0-3 per hpf (0-3); Specific Gravity,Urine > 1.030 (1.010-1.025); Squamous Epithelial Cell,Urine Moderate per hpf (None-Few); Urobilinogen,Urine Normal (Normal); WBC,Urine 0-3 per hpf (0-3)
[2021-03-19] MEDS: 0.9 % Sodium Chloride 1,000 ML IVC SCH (15:00)
[2021-03-19] MEDS ORDERED: Acetaminophen/Butalbital/CaffeineTABLET PO PRN (19:45)
[2021-03-20] MEDS ORDERED: Ketorolac 30 MG/ML VIAL IVP SCH (03:15)
[2021-03-20] MEDS ORDERED: 0.9 % Sodium Chloride 500 ML IVC ONE (03:15)
[2021-03-20] MEDS: 0.9 % Sodium Chloride 1,000 ML IVC SCH (04:50)
[2021-03-20 05:42] LABS: Alanine Aminotransferase 156 Units/L (7-52); Albumin 3.4 g/dL (3.5-5.7); Albumin/Globulin Ratio 1.6 (1.1-2.2); Alkaline Phosphatase 115 Units/L (34-104); Aspartate Amino Transferase 94 Units/L (13-39); BUN/Creatinine Ratio 14 (6-26); Bilirubin,Total 0.5 mg/dL (0.3-1.0); Blood Urea Nitrogen 9 mg/dL (6-20); Calcium 7.7 mg/dL (8.6-10.3); Carbon Dioxide 25 mEq/L (23-29); Chloride 109 mEq/L (98-107); Globulin 2.1 g/dL (2.4-3.5); Glucose 84 mg/dL (70-105); Magnesium 1.7 mg/dL (1.6-2.6); Osmolality,Calculated 284 (280-300); Phosphorous 2.4 mg/dL (2.7-4.5); Potassium 3.5 mEq/L (3.5-5.1); Sodium 138 mEq/L (136-145); Total Protein 5.5 g/dL (6.4-8.9); eGFR For African Americans > 60 (> 60); eGFR For Non-African Americans > 60 (> 60)
[2021-03-20 06:01] LABS: Hepatitis B Surface Antigen Nonreactive (Nonreactive)
[2021-03-20 06:30] LABS: Hepatitis C Virus Antibody Nonreactive (Nonreactive)
[2021-03-20 06:31] LABS: Hepatitis A Antibody IgM Nonreactive (Nonreactive); Hepatitis B Core IgM Nonreactive (Nonreactive)
[2021-03-20 07:49] VITALS: BP 102/64
[2021-03-20] MEDS: BuPROPion XL (24 HR) 150 MG TABLET PO SCH (09:27)
== END 2021-03-20 11:05 | disposition home or self-care (01) ==
LOC: 3BNU 20:36 → EMEROOARM 20:36 → SUATTDRO 03-19 02:04 → 3BNU 03-19 02:43
PROVIDERS: ADMIT Internal Medicine; ATTEND Internal Medicine

== ENCOUNTER → 2021-09-06 00:41 | Observation (INO) ==
[2021-09-06 00:17] LABS: Bilirubin,Urine Negative (Negative); Blood,Urine Negative (Negative); Clarity,Urine Clear (Clear); Color,Urine Light-Yellow (Yellow); Glucose,Urine (UA) Normal (Normal); Ketones,Urine Negative (Negative); Leukocyte Esterase,Urine Small (Negative); Nitrite,Urine Negative (Negative); Protein,Urine Trace mg/dL (Neg-Trace); RBC,Urine 0-3 per hpf (0-3); Specific Gravity,Urine 1.024 (1.010-1.025); Squamous Epithelial Cell,Urine Moderate per hpf (None-Few); Urobilinogen,Urine Normal (Normal); WBC,Urine 0-3 per hpf (0-3)
== END | disposition home or self-care (01) ==
LOC: 1NENULAB
PROVIDERS: ADMIT Advanced Practice Midwife; ATTEND Advanced Practice Midwife

== ENCOUNTER → 2021-12-19 11:57 | Observation (INO) ==
[2021-12-19 12:41] LABS: Amorphous Sediment,Urine Few per hpf (None-Few); Bacteria,Urine Few per hpf (None-Few); Bilirubin,Urine Negative (Negative); Blood,Urine Negative (Negative); Clarity,Urine Clear (Clear); Color,Urine Yellow (Yellow); Glucose,Urine (UA) Normal (Normal); Ketones,Urine Negative (Negative); Leukocyte Esterase,Urine Negative (Negative); Mucus,Urine Few per lpf (None-Few); Nitrite,Urine Negative (Negative); Protein,Urine 50 mg/dL (Neg-Trace); Specific Gravity,Urine 1.025 (1.010-1.025); Squamous Epithelial Cell,Urine Few per hpf (None-Few); Urobilinogen,Urine Normal (Normal); WBC,Urine 0-3 per hpf (0-3)
== END | disposition home or self-care (01) ==
LOC: 1NENULAB
PROVIDERS: ADMIT Student in an Organized Health Care Education/Training Program; ATTEND Obstetrics & Gynecology